=== PATIENT | female | born 1945 | race Caucasian/White ===

== ENCOUNTER 2016-09-15 11:37 | Day surgery (SDC) | payer MEDICARE, OTHER ==
[~2016-09-15] VITALS: Ht 162.6 cm; Wt 135.5 kg
[2016-09-15] MEDS ORDERED: SYNTHROID125 MCG PO (13:14)
[2016-09-15] MEDS ORDERED: TOPROL XL50 MG PO (13:14)
[2016-09-15] MEDS ORDERED: FUROSEMIDE20 MG PO (13:15)
[2016-09-15] MEDS ORDERED: ZESTORETIC 20/21 TAB PO (13:15)
[2016-09-15] MEDS ORDERED: ASPIRIN325 MG PO (13:16)
[2016-09-15 13:20] VITALS: BP 108/70; Ht 162.6 cm; Wt 135.5 kg
[2016-09-15 13:45] LABS: ANION GAP 14.9 mmol/L (8-16); CALCIUM 9.3 mg/dL (8.5-10.1); CARBON DIOXIDE 27.1 mmol/L (21.0-32.0); CREATININE - SERUM 1.1 mg/dL (0.6-1.3)
[2016-09-15 14:11] LABS: BASOPHILS 0.2 % (0.0-2.0); EOSINOPHILS 1.2 % (0-7); HEMATOCRIT 41.5 % (36.0-48.0); IMMATURE GRANULOCYTES 0.2 % (0-5); LYMPHOCYTES 26.4 % (15-50); MCHC 33.7 g/dL (31.0-37.0); MEAN PLATELET VOLUME 9.5 fL (7.4-10.4); MONOCYTES 7.1 % (2-11); NEUTROPHILS 64.9 % (40-80); PLATELET COUNT 236 10x3/uL (130-400); RBC 4.51 10x6/uL (4.00-5.40); RDW 12.4 % (11.5-14.5); WBC 5.1 10x3/uL (4.8-10.8)
--- NOTE | 2016-09-15 16:04 | NUR ---
1600--IV DC'D, PT UP TO DRESS AT THIS TIME. BEAU HARDY
--- NOTE | 2016-09-15 16:15 | NUR ---
1610--DISCHARGE INSTRUCTIONS GIVEN, PT VERBALIZES UNDERSTANDING. PT OFF UNIT VIA VANESSA. BEAU HARDY
--- NOTE | 2016-09-20 13:02 | OP ---
PATIENT NAME: ZAIDA BATISTA MEDICAL RECORD: [id number] :49 LOCATION:D.OPS ADMISSION DATE: SURGEON: ESTRELLA GA DO DATE OF OPERATION: 09/15/2016 PROCEDURE: Colonoscopy with biopsy. SCOPE: Olympus video pediatric colonoscope. MEDICATIONS: Propofol 300 mg IV per anesthesia. INDICATIONS FOR PROCEDURE: Screening colonoscopy. FINDINGS: Informed consent was given. The patient was made comfortable with the above medication. After reaching an adequate level of sedation by slow IV push, the patient was placed on her left side. A digital rectal examination was performed and was normal. The endoscope was then advanced under direct visualization through the rectum to the cecum, evidenced by the appendiceal orifice and ileocecal valve. The scope was slowly withdrawn and the mucosa was carefully examined. The withdrawal time was 8 minutes. In the sigmoid colon, there was a single benign appearing sessile polyp which measured approximately 6 mm in diameter. It was removed in its entirety in 1 piece by cold forcep polypectomy. In the sigmoid colon, there was also evidence of moderate diverticulosis with mixed, small, and large mouth diverticula. Upon retroflexion in the rectum, there was evidence of small internal hemorrhoids, which were not bleeding. Other than this, the mucosa appeared normal in its entirety. The scope was withdrawn from the patient. The patient tolerated the procedure well and there were no complications. IMPRESSION: 1. A single benign-appearing sessile polyp in the sigmoid colon, removed with cold forceps. 2. Moderate sigmoid diverticulosis. 3. Small, nonbleeding internal hemorrhoids. PLAN AND RECOMMENDATIONS: 1. Discharge home when recovery parameters are met. 2. Continue current medications. 3. High fiber diet. 4. Consider supplementing diet with fiber powder such as Metamucil, 1-2 tablespoons daily to maintain regular, soft bowel movements. 5. Recall colonoscopy dependent on pathology or results from polypectomy. I anticipate 5 years recall at this time. TRANSINT:[id number] Voice Confirmation ID: [id number] DOCUMENT ID: [id number] ESTRELLA GA DO at 1302 CC: [id number] DICTATION DATE: 09/15/16 1452 CUTTER MACHINE TENDER: 09/15/162120 [facility] 09/15/16 [facility] [address] [place] [address]
== END 2016-09-15 16:10 | disposition home or self-care (01) ==
LOC: D.OPS 11:37
PROVIDERS: Anesthesiology
DX: Z12.11 Encounter for screening for malignant neoplasm of colon (principal); I10 Essential (primary) hypertension; E03.9 Hypothyroidism, unspecified; M19.90 Unspecified osteoarthritis, unspecified site; E66.01 Morbid (severe) obesity due to excess calories; Z68.43 Body mass index [BMI] 50.0-59.9, adult; D12.5 Benign neoplasm of sigmoid colon; K57.30 Diverticulosis of large intestine without perforation or abscess without bleeding

== ENCOUNTER → 2019-04-13 09:28 | Outpatient (CLI) | payer MEDICARE, OTHER ==
[2016-09-15 13:20] VITALS: BMI 51.2
[~2019-04-13 09:28] MED LIST: ASPIRIN325 MG PO; B12 SHOT; FUROSEMIDE20 MG PO; NORVASC5 MG PO; PRAVACHOL40 MG PO; SYNTHROID125 MCG PO; TOPROL XL50 MG PO; ZESTORETIC 20/21 TAB PO
--- NOTE | 2019-04-16 09:28 | ST ---
PATIENT:ZAIDA BATISTA MEDICAL RECORD: [id number] SEX: F LOCATION:[facility] ORDER #: ADMISSION DATE: 04/13/19 AGE OF PATIENT: 74 REFERRING PHYSICIAN: INTERPRETING PHYSICIAN: RENZO SINGER MD DATE OF SERVICE: 04/13/2019 INDICATION: Angina, hypertension, and hyperlipidemia. She was exercised on standard Lexiscan protocol with 33 mCi of sestamibi injected at peak stress, 10 mCi used previously for rest images. FINDINGS: Gated SPECT reveals preserved ejection fraction at 72% with good wall motioning and thickening and brightening throughout all segments. SPECT imaging: Cardiolite was used as myocardial perfusion agent. There are reversible changes anteriorly apically, laterally, and inferiorly. This includes all sections of the myocardium. The degree of reversibility is mild to moderate. The amount of myocardium involved is very large. OVERALL IMPRESSION: Markedly abnormal nuclear stress test. Reversible ischemia throughout anterior, lateral, inferior, and apical suggestive of multivessel coronary artery disease. TRANSINT:[id number] Voice Confirmation ID: [id number] DOCUMENT ID: [id number] RENZO SINGER MD at 0928 CC: [id number] DICTATION DATE: 04/14/19 1108 CLOTH DYEING RANGE TENDER: 04/15/19 0037 DEP CLI 04/13/19 [address] [id number] [place] [address]
== END | disposition home or self-care (01) ==
LOC: D.HCCARDIO 09:28
PROVIDERS: ATTEND Internal Medicine Interventional Cardiology
DX: R07.9 Chest pain, unspecified (principal)

== ENCOUNTER 2019-05-04 07:41 | Outpatient (CLI) | payer MEDICARE, OTHER ==
[~2019-05-04] VITALS: Ht 162.6 cm; Wt 142.7 kg
--- NOTE | ~2019-05-04 | HP ---
PATIENT: ZAIDA POLLARD MEDICAL RECORD: [id number] ACCOUNT: [id number] LOCATION:[facility] : 49 ADMISSION DATE: 05/04/19 PCP: GABBIE AYERS MD HISTORY AND PHYSICAL EXAMINATION DIAGNOSES: 1. Unstable angina. 2. Abnormal nuclear stress test. 3. Hypertension. 4. Hyperlipidemia. HISTORY OF PRESENT ILLNESS: Mrs. Pollard has had increasing episodes of chest pain, chest discomfort compatible with angina, markedly abnormal nuclear stress test, now brought for cardiac catheterization. PHYSICAL EXAMINATION: CONSTITUTIONAL/GENERAL APPEARANCE: Well nourished, well developed, appears stated age. EYES: Lids and conjunctivae noninjected. No discharge. No pallor. ENT: Lips within normal limit. No cyanosis. No pallor. NECK: Carotid arteries, bilateral normal upstroke. No bruits. No thrills. No jugular venous pressure or distention. CERVICAL LYMPH NODES: Nontender. Nonenlarged. THYROID: Not enlarged. No nodules. CARDIOVASCULAR: Precordial exam, nondisplaced. No heaves or pericardial thrills. Rate and rhythm, regular. Heart sounds, normal S1, normal S2. No S3, no gallop, no rub. Systolic murmur, not heard. Diastolic murmur, not heard. RESPIRATORY: Respiratory effort, unlabored. Normal curvature. No thoracic deformity. No chest wall tenderness. Percussion, resonant. Auscultation, clear. No wheezes, no rales, no rhonchi. ABDOMEN: Soft, nondistended, nontender. No abdominal pain, no vomiting and normal appetite. MUSCULOSKELETAL: No joint tenderness, normal gait, normal tone. SKIN: Warm and dry. OVERALL IMPRESSION: Anginal symptomatology, markedly abnormal nuclear stress test. We will proceed with coronary angiography. Further care depends upon the findings of the angiography. TRANSINT:[id number] Voice Confirmation ID: [id number] DOCUMENT ID: [id number] RENZO SINGER MD CC: [id number] DICTATION DATE: 05/04/19 1032 INVESTMENT COUNSELOR: 05/04/19 1042 [facility] [address] [place] [address]
--- NOTE | ~2019-05-04 | OP ---
PATIENT NAME: ZAIDA BATISTA MEDICAL RECORD: [id number] :49 LOCATION:D.CAT ADMISSION DATE: SURGEON: RENZO SINGER MD DATE OF OPERATION: 05/04/2019 PROCEDURES: 1. Left heart catheterization. 2. Selective coronary angiography. 3. Left ventriculogram. INDICATION: Unstable angina and coronary artery disease. PROCEDURE IN DETAIL: After informed consent was obtained and after a detailed description of risks, benefits as well as alternative therapies, the patient elected to proceed with angiogram and heart catheterization. The right radial area was prepped and draped in normal sterile fashion. Right radial artery was cannulated via modified Seldinger technique with placement of 6-[place] sheath. All catheters exchanged through this sheath. FINDINGS: Left ventriculogram was performed in standard 30-degree HUNT view, reveals good cardiac wall motion, ejection fraction estimated 60%. SELECTIVE CORONARY ANGIOGRAPHY: 1. Left main is 80% stenosis. 2. The left circumflex has a hazy at least 80% stenosis at the ostium. 3. The left anterior descending has 80% stenosis in mid vessel. 4. Right coronary has 70% stenosis in mid vessel. OVERALL IMPRESSION: Severe 3-vessel coronary artery disease with left main involvement and evaluate for bypass surgery. TRANSINT:[id number] Voice Confirmation ID: [id number] DOCUMENT ID: [id number] RENZO SINGER MD CC: [id number] DICTATION DATE: 05/04/19 1034 SENIOR DATA QUALITY ANALYST: 05/04/19 1207 [facility] [address] [place] [address]
--- NOTE | ~2019-05-04 | HEMODYNAMI ---
PATIENT:ZAIDA BATISTA MEDICAL RECORD: [id number] : 49 LOCATION:[facility] ADMISSION DATE: 05/04/19 Generatedon:05/04/201910:36 Patient name: ZAIDA BATISTA Patient #: [id number] SSN: [id number] : 1945 Date of study: 05/04/2019 Page: Of Hemodynamic Procedure Report Patient Data Patient Demographics Procedure consent was obtained First Name: ZAIDA Gender: Female Last Name: LYNNE : 1945 [facility] Initial: DELON Age: 74 year(s) Patient #: [id number] Race: Unknown SSN: [id number] Additional ID: [id number] Contact details Address: [address] [place] [address] [place] State: [place] City: [place] Zip code: [address] Admission Admission Data Admission Date: 05/04/2019 Admission Time: 7:41 Arrival Date: 05/04/2019 Arrival Time: 10:00 Admit Source: Other Insurance Payor: Medicare [facility] #: [id number] Height (in.): 64.17 BSA: 2.38 (m2) Height (cm.): 163 BMI: 53.82 (kg/m2) Weight (lbs.): 315.26 Weight (kg.): 143 Lab Results Lab Result Date: 05/04/2019 Lab Result Time: 0:00 Biochemistry Name Units Result Min Max BUN mg/dl 17 --(---*)-- 7 18 Creatinine mg/dl 1.1 --(--*-)-- 0.6 1.3 eGFR ml/min 52 *-(----)-- 90 120 NONAFRICAN CBC Name Units Result Min Max Hemoglobin g/dl 13.9 --(*---)-- 13.5 17.5 Procedure Procedure Types Cath Procedure Diagnostic Procedure LHC LHC w/Coronaries Sedation Charges Moderate Sedation up to 15 minutes Procedure Description Procedure Date Procedure Date: 05/04/2019 Procedure Start Time: 10:21 Procedure End Time: 10:33 Procedure Staff Name Function William Hill MD Performing Physician Felicita Fofana RT Monitor Sangeeta Denise RT Scrub Valentin Quiroz RN Nurse Procedure Data Cath Procedure Fluoroscopy Diagnostic fluoroscopy Total fluoroscopy Time: 1.8 time: 1.8 min min Diagnostic fluoroscopy Total fluoroscopy dose: 792 dose: 792 mGy mGy Contrast Material Contrast Material Type Amount (ml) Isovue 300 46 Entry Location Entry Primary Successful Side Size Upsize Upsize Entry Closure Matos ccessful Closure Location (Fr) 1 (Fr) 2 (Fr) Remarks Device Remarks Radial Right 6 Fr Mechanical artery Short Compression Estimated blood loss: 5 ml Diagnostic catheters Device Type Used For End Catheter Placement DIAGNOSTIC [place] 110cm 5 Multi-vessel Fr catheter ([id number]) Angiography Procedure Complications No complications Procedure Medications Medication Administration Route Dosage Oxygen etCO2 Nasal cannula 2 l/min Lidocaine 2% added to field 20 Heparin Flush Bag added to field 2 bags (1000units/500ml NS) 0.9% NaCl I.V. 100 ml/hr Radial Cocktail I.A. 1 syringe (Verapamil 2mg/Nitro 400mcg/Heparin 1500units) Versed I.V. 1 mg Fentanyl I.V. 50 mcg Versed I.V. 1 mg Fentanyl I.V. 50 mcg Fentanyl I.V. 50 mcg Hemodynamics Rest BSA: 2.38 (m2) HGB: 13.9 (g/dl) O2 Consumption: Estimated: 235.06 (ml/min) O2 Co nsumption indexed: Estimated:98.76 (ml/min/m) Heart Rate: 89 (bpm) Pressure Samples Time Site Value (mmHg) Purpose Heart Use Rate(bpm) 10:25 LV 87/5,5 Snapshot 85 Snapshots Pre Cath Intra NCS Post Cath Vital Signs Time Heart Resp SPO2 etCO2 NIBP (mmHg) Rhythm Pain Sedation Rate (ipm) (%) (mmHg) Status Level (bpm) 10:06:36 90 15 99 11.3 135/87(112) NSR 0 (11) 10(A) , No pain 10:11:03 80 12 97 28.6 130/75(105) NSR 0 (11) 10(A) , No pain 10:15:26 84 19 96 36.1 127/76(94) NSR 0 (11) 10(A) , No pain 10:19:47 83 19 93 30.8 128/77(95) NSR 0 (11) 9(A) , No pain 10:24:11 84 17 95 0 121/72(92) NSR 0 (11) 9(A) , No pain 10:28:31 82 14 94 34.6 94/64(85) NSR 0 (11) 10(A) , No pain 10:32:43 80 10 93 0 111/65(92) NSR 0 (11) 10(A) , No pain Medications Time Medication Route Dose Verified Delivered Reason Notes Effectiveness by by 10:11:53 Oxygen etCO2 2 l/min William Hanson used for Nasal Liz Quiroz RN procedure cannula 10:12:01 Lidocaine 2% added 20ml William Thomas for local to vial Liz Hill MD anesthetic field 10:12:08 Heparin Flush added 2 bags William Thomas used for Bag to Liz Hill MD procedure (1000units/500ml field NS) 10:12:17 0.9% NaCl I.V. 100 William Bufffrancisco javier Per ml/hr Liz Quiroz RN physician 10:17:46 Versed I.V. 1 mg William Hanson for sedation Liz Quiroz RN 10:17:52 Fentanyl I.V. 50 mcg William Hanson for sedation Liz Quiroz RN 10:21:12 Versed I.V. 1 mg William Colemanie for sedation Liz Quiroz RN 10:21:16 Fentanyl I.V. 50 mcg William Hanson for sedation Liz Quiroz RN 10:23:54 Radial Cocktail I.A. 1 William Thomas for (Verapamil syringe Liz Hill MD vasodilation 2mg/Nitro 400mcg/Heparin 1500units) 10:25:04 Fentanyl I.V. 50 mcg William Hanson for sedation Liz Quiroz RN Procedure Log Time Note 9:07:26 Informed consent obtained and on chart 9:25:04 Arrival Date: 05/04/2019 10:00:00 AM 9:25:39 Insurance Payor : Medicare 9:25:50 Patient Height : 64.17 inches 9:25:56 Patient Weight : 315.26 lbs 9:26:37 Lab Result : Hemoglobin 13.9 g/dl 9:26:37 Lab Result : eGFR NONAFRICAN 52 ml/min 9::37 Lab Result : BUN 17 mg/dl 9::37 Lab Result : Creatinine 1.1 mg/dl 9:33:07 Diagnostic Cath Status : Elective 9:33:24 Sangeeta Denise RT(R) sent for patient. Start room use. 9:33:25 Time tracking: Regular hours (M-F 7:00 - 5:00) 9:33:29 Plan of Care:Hemodynamics will remain stable., Cardiac rhythm will remain stable., Comfort level will be maintained., Respiratory function will remain adequate., Patient/ family verbilizes understanding of procedure., Procedure tolerated without complication., Recovers from procedure without complications.. 9:50:29 Admit Source: Other 10:05:16 Patient received from Pre/Post Procedure Room to CCL 2 Alert and oriented. Tansferred to table in Supine position. 10:05:18 Warm blankets applied, and ashok hugger turned on for patient comfort. 10:05:18 Correct patient and procedure confirmed by team. 10:05:18 ECG and BP/O2 sat monitors applied to patient. 10:05:19 Vital chart was started 10:06:39 Baseline sample Acquired. 10:06:47 Rhythm: sinus tachycardia 10:06:49 Full Disclosure recording started 10:07:05 H&P Date Dictated: 05/04/2019 H&P Addendum completed by physician on day of procedure. (MUST COMPLETE FOR ALL OUTPATIENTS), New H&P dictated by physician.. 10:07:06 Pre-procedure instructions explained to patient. 10:07:07 Pre-op teaching completed and patient verbalized understanding. 10:07:08 Family in waiting room. 10:07:09 Patient NPO since Midnight. 10:07:12 Is the patient allergic to Iodine/contrast media? No. 10:07:13 Was the patient premedicated? Yes 10:07:23 Is patient on blood thinner?No 10:07:25 Patient diabetic? No. 10:07:27 Previous problem with sedation/anesthesia? No ? 10:07:28 Snore? Yes 10:07:29 Sleep apnea? Yes 10:07:32 Deviated septum? No 10:07:33 Opens mouth fully? Yes 10:07:35 Sticks out tongue? Yes 10:07:53 Airway obstruction? No ? 10:07:56 Dentures? No ? 10:08:01 Pre procedure: right dorsailis pedis pulse 2+ Normal; easily identifiable; not easily obliterated 10:08:02 Pre procedure: left dorsailis pedis pulse 2+ Normal; easily identifiable; not easily obliterated 10:08:04 Patient pain scale 0/10 ?. 10:08:09 IV patent on arrival in left forearm with 0.9% NaCl at [facility]. 10:08:14 Risk of Mortality: 0.2 10:08:18 Risk of blood transfusion: 1.6 10:08:22 Risk of SVITLANA: 2.6 10:08:26 Right Radial & Right Groin area was prepped with chlora-prep and draped in sterile fashion 10:08: Alarms reviewed by R. N. 10:08:27 Sharps counted by scrub and verified by R.N. 10:11:14 Physician arrived 10:11:15 --------ALL STOP TIME OUT------ 10::15 Final Timeout: patient, procedure, and site verified with staff and physician. All members of the team are in agreement. 10:11:18 Right Radial & Right Groin site verified by team. 10:11:22 Fire Safety Assessment: A--An alcohol-based skin anteseptic being used preoperatively., C--Open oxygen or nitrous oxide is being used., D--An ESU, laser, or fiber-optic light is being used. 10:11:24 Physical assessment completed. ASA score P 2 - A patient with mild systemic disease as per William Hill MD. 10:11:53 Oxygen 2 l/min etCO2 Nasal cannula was administered by Valentin Quiroz RN; used for procedure; Verbal order read back and verified. 10:12:01 Lidocaine 2% 20ml vial added to field was administered by William Hill MD; for local anesthetic; Verbal order read back and verified. 10:12:05 3a) 45-59 Moderately reduced kidney function. 10:12:08 Heparin Flush Bag (1000units/500ml NS) 2 bags added to field was administered by William Hill MD; used for procedure; Verbal order read back and verified. 10:12:17 0.9% NaCl 100 ml/hr I.V. was administered by Buffie Quiroz RN; Per physician; Verbal order read back and verified. 10:13:08 Maximum allowable contrast dose (3.7 X eGFR X 0.75)144 ml. 10:13:12 Sedation plan: IV Moderate Sedation Medication:Versed, Fentanyl 10:13:16 Use device set Radial Dx or PCI 10:13:17 ACIST Syringe (01849) opened to sterile field. 10:13:17 Medline Cath Pack ([id number]) opened to sterile field. 10:13:18 Bag Decanter (2002S) opened to sterile field. 10:13:18 ACIST Hand Control (60072) opened to sterile field. 10:13:19 ACIST Manifold (31247) opened to sterile field. 10:13:19 Tegaderm 4 x 4 (1626W) opened to sterile field. 10:13:20 MBrace Wrist Support ([id number]) opened to sterile field. 10:13:23 SHEATH 6FR RAIN (4126035) opened to sterile field. 10:13:23 EMERALD Guide Wire (508-882) opened to sterile field. 10:17:46 Versed 1 mg I.V. was administered by Valentin Quiroz RN; for sedation; Verbal order read back and verified. 10:17:52 Fentanyl 50 mcg I.V. was administered by Valentin Quiroz RN; for sedation; Verbal order read back and verified. 10:21:12 Versed 1 mg I.V. was administered by Valentin Quiroz RN; for sedation; Verbal order read back and verified. 10:21:16 Fentanyl 50 mcg I.V. was administered by Valentin Quiroz RN; for sedation; Verbal order read back and verified. 10:21:49 Procedure started. 10:21:58 Local anesthetic to right radial artery with Lidocaine 2% by William Hill MD.INITIAL ACCESS ONLY 10:22:49 A 6 Fr Short sheath was inserted into the Right Radial artery 10:22:58 A DIAGNOSTIC [place] 110cm 5 Fr catheter (598752) was advanced over the wire and used for Multi-vessel Angiography. 10:23:02 Zero performed for pressure channel P1 10:23:54 Radial Cocktail (Verapamil 2mg/Nitro 400mcg/Heparin 1500units) 1 syringe I.A. was administered by William Hill MD; for vasodilation; Verbal order read back and verified. 10:25:04 Fentanyl 50 mcg I.V. was administered by Valentin Quiroz RN; for sedation; Verbal order read back and verified. 10:25:12 LV hemodynamics recorded. 10:25:13 LV gram done using HUNT 10:25:15 Injector settings: Ml/sec: 5, Volume: 15, 10:25:21 EF : 60 % 10:25:45 LCA angiography performed. 10:25:48 Injector settings: Ml/sec: 3, Volume: 6, 10:27:06 RCA angiography performed. 10:27:20 Injector settings: Ml/sec: 3, Volume: 6, 10:28:20 Catheter removed. 10:28:22 ZEPHYR REGULAR TR BAND (789246) opened to sterile field. 10:28:32 Sheath removed intact; hemostasis achieved with Mechanical Compression to the Right Radial artery. 10:29:02 Procedure ended.(Physican Out) 10:30:18 Fluoroscopy time 01.80 minutes. 10:30:22 Flurop Dose total: 792 10:30:22 Fluoroscopy dose: 792 mGy 10:30:27 Dose Area Product 73322 mGy/cm. 10:30:30 Contrast amount:Isovue 300 46ml. 10:31:04 Maximum allowable dose exceeded? No. 10:31:05 Sharps counted by scrub and verified by R.N. 10:31:09 [place] band inflated with 10cc of air. 10:31:59 Insertion/operative site no bleeding no hematoma. 10:32:32 Post right radial artery:stable 10:32:42 Post Procedure Pulses reassessed and unchanged 10:32:44 Post procedure rhythm: unchanged. 10:32:55 Estimated blood loss: 5 ml 10:32:57 Post procedure instruction explained to patient.Patient verbalizes understanding. 10:32:57 Patient needs reinforcement of post procedure teaching. 10:33:14 Procedure type changed to Cath procedure, Diagnostic procedure, LHC, [facility] w/Coronaries, Sedation Charges, Moderate Sedation up to 15 minutes 10:33:15 Procedure and supply charges have been captured, reviewed, submitted and are correct. 10:33:23 Procedure Complication : No complications 10:33:25 Vital chart was stopped 10:33:31 [facility] Findings: MVD- CABG consult 10:33:32 Operative report dictated upon procedure completion. 10:33:33 See physician's report for complete and final results. 10:33:35 Report given to Pre/Post Procedure Room. 10:33:38 Patient transfered to Pre/Post Procedure Room with Stretcher. 10:33:40 Procedure ended. 10:33:40 Full Disclosure recording stopped 10:33:49 End room use (Document Last) 10:35:39 End room use (Document Last) 10:36:06 End room use (Document Last) Device Usage Item Name Manufacture Quantity Catalog Hospital Part Current Minima l Lot# / Number Charge Number Stock Stock Serial# Code ACIST Acist 1 54240 [id number] [id number] 20 Syringe Medical (53609) Systems Inc Medline Medline 1 [id number] [id number] 38754 620123 5 Cath Pack ([id number]) Bag Microtek 1 2001S 617643 29295 917010 5 Decanter Medical Inc. () ACIST Hand Acist 1 53138 604335 753352 462814 5 Control Medical (68689) Systems Inc ACIST Acist 1 84074 963433 943464 625664 5 Manifold Medical (83590) Systems Inc Tegaderm 4 3M 1 1626W 819177 122032 995755 5 x 4 (1626W) MBrace Advanced 1 140-0250-00 775458 91635 372087 5 Wrist Vascular Support Dynamics ([id number]) SHEATH 6FR Cardinal 1 [id number] 050281 8744029 388046 5 RAIN Health (3375098) EMERALD Cardinal 1 502-455 884616 906620 082602 5 Guide Wire Health (502-548) DIAGNOSTIC Terumo 1 40-5013 263988 670554 701197 5 [place] 110cm 5 Fr catheter (822049) ZEPHYR Cardinal 1 473242 199094 9902362 531227 5 REGULAR TR Health BAND (927280) Signature Audit [place] Stage Time Signature Unsigned Intra-Procedure 05/04/2019 Felicita Fofana 10:35:40 AM RT(R) Intra-Procedure 05/04/2019 Valentin Quiroz RN 10:36:06 AM Intra-Procedure 05/04/2019 William Hill 10:36:37 AM Signatures Performing Physician : Signature : William Hill MD Date : Time : Monitor : Felicita Brigido RT Signature : Date : Time : Nurse : Buffie Quiroz RN Signature : Date : Time : [address] [place] [address]
[~2019-05-04 07:41] MED LIST changes: -B12 SHOT; -NORVASC5 MG PO; -PRAVACHOL40 MG PO
[2019-05-04] MEDS ORDERED: PRAVACHOL40 MG PO (08:05)
[2019-05-04] MEDS ORDERED: NORVASC5 MG PO (08:06)
[2019-05-04 08:13] VITALS: BP 134/77; BMI 54.0
[2019-05-04 08:40] LABS: ANION GAP 12.9 mmol/L (8-16); CALCIUM 9.6 mg/dL (8.5-10.1); CARBON DIOXIDE 23.2 mmol/L (21.0-32.0); CREATININE - SERUM 1.1 mg/dL (0.6-1.3); POTASSIUM - SERUM 4.1 mmol/L (3.5-5.1)
[2019-05-04 08:44] LABS: BASOPHILS 0.2 % (0-2); EOSINOPHILS 0 % (0-7); HEMATOCRIT 40.4 % (36.0-48.0); HEMOGLOBIN 13.9 g/dL (12-16); IMMATURE GRANULOCYTES 0.4 % (0-5); LYMPHOCYTES 14.8 % (15-50); MCH 30.6 pg (26.0-34.0); MCHC 34.4 g/dL (31.0-37.0); MEAN PLATELET VOLUME 9.1 fL (7.4-10.4); MONOCYTES 2.7 % (2-11); NEUTROPHILS 81.9 % (40-80); PLATELET COUNT 243 10x3/uL (130-400); RBC 4.54 10x6/uL (4.00-5.40); RDW 12.3 % (11.5-14.5); WBC 5.6 10x3/uL (4.8-10.8)
--- NOTE | 2019-05-04 10:45 | NUR ---
PT ARRIVED BY STRETCHER. PLACED ON MONITORS. ASSESSMENT COMPLETED. PT'S FAMILY AT BEDSIDE. CALL LIGHT WITHIN REACH.
--- NOTE | 2019-05-04 11:00 | NUR ---
RIGHT WRIST Z BAND IN PLACE. NO BLEEDING/HEMATOMA NOTED. CALL LIGHT WITHIN REACH. FAMILY AT BEDSIDE. VSS.
--- NOTE | 2019-05-04 11:15 | NUR ---
RIGHT RADIAL Z BAND IN PLACE. NO BLEEDING/HEMATOMA NOTED. FAMILY AT BEDSIDE. VSS. CALL LIGHT WITHIN REACH.
--- NOTE | 2019-05-04 11:35 | NUR ---
DR. SINGER ROUNDED AND SPOKE WITH PT AND PT'S FAMILY. RIGHT WRIST Z BAND IN PLACE. NO BLEEDING/HEMATOMA NOTED. 2cc OF AIR REMOVED FROM BAND. NO BLEEDING NOTED. PT SET UP WITH SANDWICH TRAY AND DRINK. DENIES NAUSEA/PAIN AT THIS TIME.
--- NOTE | 2019-05-04 11:45 | NUR ---
3cc OF AIR REMOVED FROM Z BAND. NO BLEEDING/HEMATOMA NOTED. CALL LIGHT WITHIN REACH. FAMILY AT BEDSIDE. NO NEEDS AT THIS TIME.
--- NOTE | 2019-05-04 12:00 | NUR ---
3cc OF AIR REMOVED FROM Z BAND. NO BLEEDING/HEMATOMA NOTED. CALL LIGHT WITHIN REACH. FAMILY AT BEDSIDE. VSS.
--- NOTE | 2019-05-04 12:30 | NUR ---
RIGHT RADIAL Z BAND REMOVED. DRESSING APPLIED. NO BLEEDING/HEMATOMA NOTED. CALL LIGHT WITHIN REACH. RIGHT WRIST BRACE IN PLACE. VSS. WILL CONTINUE TO MONITOR.
--- NOTE | 2019-05-04 12:45 | NUR ---
FREIGHT AGENT AT BEDSIDE FOR CAROTID DOPPLERS.
--- NOTE | 2019-05-04 13:00 | NUR ---
PT AMBULATED TO RESTROOM. VOIDED WITHOUT DIFFICULTY. BACK TO ROOM. STEADY GAIT NOTED. CALL LIGHT WITHIN REACH. WAITING ON DR. ESPANA TO ROUND AND SPEAK WITH PT.
--- NOTE | 2019-05-04 13:20 | NUR ---
DR. ESPANA AT BEDSIDE SPEAKING WITH PT AND PT'S FAMILY.
[2019-05-04 13:36] VITALS: Ht 162.6 cm; Wt 142.7 kg
--- NOTE | 2019-05-04 13:45 | NUR ---
ULTRASOUND AT BEDSIDE FOR BILATERAL VEIN MAPPING.
--- NOTE | 2019-05-04 14:06 | NUR ---
RIGHT WRIST DRESSING C/D/I. NO S/S OF HEMATOMA NOTED. CALL LIGHT WITHIN REACH. PT STILL GETTING VEIN MAPPING BY ULTRASOUND. NO NEEDS AT THIS TIME.
--- NOTE | 2019-05-04 14:57 | NUR ---
RESP THERAPY AT BEDSIDE TO DO NIV AND VC
--- NOTE | 2019-05-04 15:11 | NUR ---
LAB AT BEDSIDE TO DRAW LAB AND OBTAIN URINE SPECIMEN.
--- NOTE | 2019-05-04 15:12 | NUR ---
PIV D/C'D WITH CATH TIP INTACT. PT TOLERATED WELL.
--- NOTE | 2019-05-04 15:20 | NUR ---
PT UP AND DRESSED WITH ASSIST.
--- NOTE | 2019-05-04 15:40 | NUR ---
DISCUSSED DISCHARGE INSTRUCTIONS WITH PT AND PT'S FAMILY. THEY VOICED UNDERSTANDING. SEAN WITH DR. ESPANA HAS ALREADY GONE OVER INFORMATION FOR TUESDAY CABG SURGERY. THEY VOICED UNDERSTANDING. RIGHT WRIST DRESSING C/D/I. NO S/S OF HEMATOMA NOTED.
--- NOTE | 2019-05-04 16:00 | NUR ---
PT TAKEN TO RADIOLOGY BY WHEELCHAIR.
--- NOTE | 2019-05-04 16:24 | NUR ---
PT TAKEN OUT TO VEHICLE BY WHEELCHAIR. NO S/S OF DISTRESS NOTED. ALL BELONGINGS AND PAPERWORK IN HAND. RIGHT WRIST DRESSING C/D/I. NO S/S OF HEMATOMA NOTED.
== END 2019-05-04 16:25 | disposition home or self-care (01) ==
LOC: D.CATH 07:41
PROVIDERS: ATTEND Internal Medicine Interventional Cardiology
DX: I25.110 Atherosclerotic heart disease of native coronary artery with unstable angina pectoris (principal); I10 Essential (primary) hypertension; R07.9 Chest pain, unspecified; R94.30 Abnormal result of cardiovascular function study, unspecified

== ENCOUNTER 2019-05-07 05:06 | Inpatient (IN) | payer MEDICARE, OTHER ==
[2019-05-04 15:30] LABS: APPEARANCE SL CLDY (CLEAR); COLOR YELLOW (YELLOW)
[2019-05-04 15:31] LABS: BILIRUBIN NEGATIVE (NEGATIVE); GLUCOSE 500 mg/dL (NEGATIVE); KETONE NEGATIVE (NEGATIVE); NITRITE NEGATIVE (NEGATIVE); PROTEIN NEGATIVE (NEGATIVE); UROBILINOGEN NORMAL (NORMAL)
[2019-05-04 15:32] LABS: BACTERIA FEW /hpf (NEGATIVE); EPITHELIAL CELLS 0-5 /hpf (0-5); RED CELLS - URINE 0-5 /hpf (0-5); WHITE CELLS - URINE RARE /hpf (NEGATIVE)
[2019-05-04 15:40] LABS: APTT 22.8 SECONDS (22.8-39.4); INR 1.04 (0.85-1.17); PROTIME 13.1 SECONDS (11.6-15.0)
[2019-05-04 16:01] LABS: ALBUMIN 3.5 g/dL (3.4-5.0); ANION GAP 12.6 mmol/L (8-16); BILIRUBIN - TOTAL 0.38 mg/dL (0.2-1.3); CALCIUM 10.3 mg/dL (8.5-10.1); CARBON DIOXIDE 27.4 mmol/L (21.0-32.0); CREATININE - SERUM 1.1 mg/dL (0.6-1.3); PHOSPHOROUS 2.3 mg/dL (2.5-4.9); PROTEIN - SERUM 8.4 g/dL (6.4-8.2); T4 THYROXIN - FREE 1.3 ng/dL (0.76-1.46); THYROID STIMULATING HORMONE 0.81 uIU/mL (0.36-3.74); URIC ACID 6.7 mg/dL (2.6-7.2)
[~2019-05-07] VITALS: Ht 162.6 cm; Wt 149.3 kg
[2019-05-07] VITALS (38 sets, daily range): BP systolic 86–139; BP diastolic 42–72; BMI 53.1; BMI 56.7
[~2019-05-07 05:06] MED LIST changes: +NORVASC5 MG PO; +PRAVACHOL40 MG PO
[2019-05-07] MEDS ORDERED: B12 SHOT (06:04)
--- NOTE | 2019-05-07 10:48 | NUR ---
OPEN SORE NOTED ON BACK OF LEFT UPPER LEG.
[2019-05-07 12:53] LABS: INR 1.46 (0.85-1.17); PROTIME 17.1 SECONDS (11.6-15.0)
--- NOTE | 2019-05-07 14:11 | NUR ---
PT ARRIEVED IN THE UNIT. PT SEDATED AND ON THE VENT. PT HOOKED TO ICU MONITORS. NSR ON THE MONITOR. PT ON LIEN, DOPAMINE, AMIODORONE, PLASMALYTE AT 50ML/H. PER OR STAFF, K IS IN THE PLASMALYTE. PT O2 SAT 88% ON 100% FIO2. HYPOTENSIVE. ANESTESIA GIVING EPI. PT IN [place] DR ESPANA AT THE PTS BEDSIDE. START LEVOPHED GTT. XRAY SHOT AND DR ESPANA REVIEWED. PRESSURE INCREASING AND O2 ABOUT 90%. SEE IV MEDS FOR GTT AND RATES. 8.0 ETT 22, RIGHT IJ CVL NOTED. MIDSTERNAL DRESSING C/D/I. SUBSTERNAL DRESSING C/D/I WITH CT X2 LABLED A AND P AND A LEFT SUBSTERNAL TRAVIS DRAIN. ALL DRAINS HAVE BLOODY DRAINAGE. TRAVIS COMPRESSED. TPM WIRES X2 CONNECTED TO PACEMAKER BUT TURNED OFF. LEFT TEO NOTED WITH THE WRIST PROTECTOR ON, IV TO R WRIST. R WRIST HARVEST NOTED. DRESSING C/D/I. FC NOTED WITH CLEAR, YELLOW URINE. RLE HARVEST SITE NOTED. DRESSING C/D/I WITH KOBAN FROM ANKLE TO THIGH. WILL CONT POC.
[2019-05-07 15:02] LABS: INR 1.24 (0.85-1.17)
--- NOTE | 2019-05-07 15:45 | MORECARE ---
CASE MANAGEMENT DISCHARGE SUMMARY PATIENT: ZAIDA BATISTA DELON UNIT: [id number] ADM DATE: 05/07/19 AGE: 74 : [birth year] SEX: F ROOM/BED: [facility] AUTHOR: JUANY JAIN PHYSICIAN: REFERRING PHYSICIAN: TALISHA ESPANA MD DATE OF SERVICE: 05/07/19 Discharge Plan Patient Name: ZAIDA BATISTA [facility] [facility] 1945 Planned Disposition: Anticipated Discharge Date: Discharge Date: Expected LOS: Initial Reviewer: [email or web address] Initial Review Date: 05/07/2019 Generated: 05/07/19 4:45 pm Patient Name: ZAIDA BATISTA Page 79340 at 1545 All edits/amendments must be made on the electronic document DICTATION DATE: 05/07/19 1545 FOLEY ARTIST: JENNIFER 05/07/19 1545 RPT#: [id number] DC DATE: STATUS: ADM IN [facility] [address] [place] [address] END OF REPORT
--- NOTE | 2019-05-07 15:53 | MORECARE ---
CASE MANAGEMENT DISCHARGE SUMMARY PATIENT: ZAIDA BATISTA UNIT: [id number] ADM DATE: 05/07/19 AGE: 74 : 47 SEX: F [facility]BED: [facility] AUTHOR: CRISTOBAL,DOC PHYSICIAN: REFERRING PHYSICIAN: TALISHA ESPANA MD DATE OF SERVICE: 05/07/19 Discharge Plan Patient Name: ZAIDA BATISTA Facility: [facility]:[place] : 1945 Planned Disposition: Anticipated Discharge Date: Discharge Date: Expected LOS: Initial Reviewer: [email or web address] Initial Review Date: 05/07/2019 Generated: 05/07/19 4:53 pm Comments DCP- Discharge Planning Updated by [email or web address]: Rae Kline on 05/07/19 2:[address] Patient Name: ZAIDA BATISTA Admission Status: Elective Accout number: [id number] Admission Date: 05-07-2019 : 1945 Admission Diagnosis: Attending: TALISHA ESPANA Current LOS: 1 Anticipated DC Date: Planned Disposition: Primary Insurance: MEDICARE A & B Discharge Planning Comments: CM met with patient's daughter's to complete initial dc planning assessment. CM educated patient on the CM role and verbal consent given by patient to complete assessment. Patient lives at home alone where she is independent with her care. At discharge patient plans to return home and feels this is a safe discharge. CM discussed availability of home health, rehab services, and medical equipment. Her daughter will be her laborer driver home. Patient may need walk test if 02 required at discharge. Patient denied known discharge needs at this time. CM will continue to follow and will assist as needed with dc plans/needs. Hair Clipper Power: Rae Kline DCPIA - Discharge Planning Initial Assessment Updated by [email or web address]: Rae Kline on 05/07/19 3:46 pm * How many steps to enter\exit or inside your home? * PCP GABBIE AYERS * Pharmacy [facility] * Preadmission Environment Home Alone * ADLs Independent * Equipment None * List name and contact numbers for known caregivers / representatives who currently or will assist patient after discharge: BALTA CARMEN - DAUGHTER - [phone] ELAN GUIDRY - DAUGHTER - [phone] * Verbal permission to speak to the caregivers and representatives has been obtained from the patient. Yes * Community resources currently utilized None * Additional services required to return to the preadmission environment? No * Can the patient safely return to the preadmission environment? Yes * Has this patient been hospitalized within the prior 30 days at any hospital? No Last DP export: 05/07/19 2:45 p Patient Name: ZAIDA BATISTA Page 93686 at 1553 All edits/amendments must be made on the electronic document DICTATION DATE: 05/07/191552 ELECTRIC DISTRIBUTION ENGINEER: JENNIFER 05/07/191552 RPT#: [id number] DC DATE: STATUS: ADM IN [facility] [address] [place] [address] END OF REPORT
--- NOTE | 2019-05-07 16:11 | NUR ---
DR ESPANA CALLED AND ABG READ TO HIM. GIVE 500CC BOLUS OVER 1 HOUR.
--- NOTE | 2019-05-07 17:45 | NUR ---
O2 INCREASED TO 100% DUE TO 89-90%
--- NOTE | 2019-05-07 18:53 | NUR ---
DR ESPANA CALLED AND UPDATED ON PT. 250 BOLUS/1H. WEEN LIEN TOLERATED. DECREASE DOPAMINE TO 3MCG/KG/MIN AND LEAVE IT. KEEP PT SEDATED. GET GAS IN [address] ESPANA FOR FURTHER ORDERS.
--- NOTE | 2019-05-07 19:00 | NUR ---
REPORT RECIEVED. CARE ASSUMED. SEE FLOWSHEET FOR GTTS. VENT PER ETT. SEDATED. OPENS EYES TO SPEECH, FOLLOWS COMMANDS.
--- NOTE | 2019-05-07 20:00 | NUR ---
DAUGHTERS AT BEDSIDE. UPDATE ON PT GIVEN AND QUESTIONS ANSWERED.
--- NOTE | 2019-05-07 21:25 | NUR ---
ABG RESULT SENT TO DR ESPANA. NEW ORDERS RECIEVED. DECREASED DOPAMINE. STARTING LEVOPHED AT LOW DOSE AND WILL START WEANING LIEN DOWN. SEDATION OFF. SEE IV FLOWSHEET.
[2019-05-08] VITALS (81 sets, daily range): BP systolic 94–130; BP diastolic 46–68; Ht 162.6 cm; Wt 149.3 kg
--- NOTE | 2019-05-08 01:38 | NUR ---
BLOOD GLUCOSE IS BACK UP TO 160. INSULIN GTT RESTARTED AT HALF OF LAST DOSE(4ML/HR). CONTINUIONG TO TITRATE LIEN DOWN.
--- NOTE | 2019-05-08 04:00 | NUR ---
SPOKE WITH DR SWAN ON PHONE AND UPDATE GIVEN ON PT.
--- NOTE | 2019-05-08 05:20 | NUR ---
PT BATHED AND LINENS CHANGED. TOLERATED WELL.
--- NOTE | 2019-05-08 06:15 | NUR ---
LEVOPHED AND LIEN ARE WEANED OFF. PT IS TOLERATING WELL.
[2019-05-08 06:31] LABS: HEMOGLOBIN 11.6 g/dL (12-16); MCH 30.1 pg (26.0-34.0); MCHC 33.1 g/dL (31.0-37.0); MCV 90.9 fL (80.0-100.0); MEAN PLATELET VOLUME 9.1 fL (7.4-10.4); RBC 3.85 10x6/uL (4.00-5.40); RDW 12.7 % (11.5-14.5); WBC 11.8 10x3/uL (4.8-10.8)
[2019-05-08 06:54] LABS: ALBUMIN 2.6 g/dL (3.4-5.0); ANION GAP 10.7 mmol/L (8-16); BILIRUBIN - TOTAL 0.25 mg/dL (0.2-1.3); CALCIUM 8.1 mg/dL (8.5-10.1); CARBON DIOXIDE 26.3 mmol/L (21.0-32.0); CREATININE - SERUM 1.3 mg/dL (0.6-1.3); MAGNESIUM - SERUM 2.6 mg/dL (1.8-2.4); PHOSPHOROUS 3.8 mg/dL (2.5-4.9); PROTEIN - SERUM 5.8 g/dL (6.4-8.2)
--- NOTE | 2019-05-08 07:41 | NUR ---
BLOOD GLUCOSE 120 AFTER 15MIN. INSULIN OFF AT THIS TIME PER PROTOCOL.
--- NOTE | 2019-05-08 08:29 | NUR ---
SBP 99/50. DR. ESPANA NOTIFIED. WANTS PT ON LOW DOSE OF LIEN TO MAINTAIN SBP BETWEEN 100-120. LIEN HAS BEEN RESTARTED AT 0.1MCG/KG/MIN.
--- NOTE | 2019-05-08 10:18 | NUR ---
BLOOD GLUCOSE 141. INSULIN DRIP OFF PER PROTOCOL.
--- NOTE | 2019-05-08 10:49 | OP ---
PATIENT NAME: ZAIDA BATISTA MEDICAL RECORD: [id number] :47 LOCATION:D.CVI D.CV06 ADMISSION DATE:05/07/19 SURGEON: TK ESPANA MD DATE OF OPERATION: 05/07/2019 SURGEON: Tk Espana MD FRONT DESK COORDINATOR: None. PROCEDURES PERFORMED: 1. Coronary artery bypass graft times 4 (left internal mammary artery to LAD, left radial artery from aorta to obtuse marginal, reverse saphenous vein graft from aorta to first diagonal and aorta to posterior descending artery). 2. Left radial artery harvest. 3. Endoscopic saphenous vein harvest. PREOPERATIVE DIAGNOSIS: Coronary artery disease including severe left main stenosis. POSTOPERATIVE DIAGNOSIS: Coronary artery disease including severe left main stenosis. ANESTHESIA: General endotracheal anesthesia. ESTIMATED BLOOD LOSS: Total cardiopulmonary bypass with Cell Saver retransfusion 1 pack red blood cell, two FFP. COMPLICATIONS: None. CONDITION: Stable. SPECIMENS: None. DISPOSITION: CV-ICU. OPERATIVE FINDINGS: 1. Transesophageal echocardiography revealed good contractility and no valvular incompetence or stenosis before and after cardiopulmonary bypass. 2. Good quality left radial artery. 3. Good quality greater saphenous vein and a large fatty leg. 4. Good quality left internal mammary artery. 5. Large heart. 6. LAD 2.0 mm with severe disease. 7. First diagonal 1.5 mm with severe disease. 8. Obtuse marginal, first branch 1.5 mm. 9. Posterior descending artery 2.0 mm. OPERATIVE INDICATION: Coronary artery disease with left main coronary stenosis. OPERATIVE PROCEDURE IN DETAIL: The patient was brought to the operative suite. General anesthesia was obtained. The patient was prepped and draped, left radial artery harvest was performed by dividing the side branches with clips, ligating vessel proximally and distally oversewing with Prolene. Perfusing the vessel with blood papaverine solution. The arm was closed with subcutaneous suture and clips. OPERATIVE REPORT [id number] ZAIDA BATISTA Endoscopic vein harvest, right lower extremity was performed. Side branch valve electrocautery. Vessels were ligated proximally and distally, removed. Side branches were tied or clipped and then sites were oversewn. The leg was closed in 2 layers. Median sternotomy incision was made. Subcutaneous tissue divided. Left carotid system was divided with a saw. Left hemisternum was elevated. The left lower cavity was entered. Left internal mammary vein was taken as a pedicle graft. Sternal retractor was placed. Pericardium was opened. Heparin was given. Dual stage venous cannula was inserted. The Internal mammary clipped and made ready for anastomosis. Activated clotting times were appropriately elevated. The patient placed on cardiopulmonary bypass. Sites for distal anastomoses were selected. An antegrade cardioplegia needle inserted. Crossclamp was placed. Cardioplegia given antegrade and this was repeated at 15 to 20 minute intervals including down the completed vein grafts. Distal anastomosis was performed in standard technique. Proximal anastomosis with single cross-clamp technique. Aortic root de-aired and vein grafts de-aired. Proximal and distal anastomotic sites inspected for bleeding. Single 6-0 was the proximal vein graft to the right, vein graft lay appropriately. The patient resumed a spontaneous rhythm. Atrial and ventricular pacing wires were placed. Left chest was evacuated and irrigated. The patient fully rewarmed, weaned from cardiopulmonary bypass and was stable. The patient was decannulated. Bleeding at the atrial cannulation sites were repaired with a pledgeted Prolene suture. The aortic cannula site oversewn with a pledgeted Prolene suture. Protamine was given. Thorough irrigation was undertaken. Hemostasis was ensured. Drain was placed in mediastinal pleural cavity. Pericardial fat was loosely reapproximated in the midline internal mammary harvest site without bleeding. Sternum was closed with wires. Fascia was closed. Subcutaneous tissue was closed. Skin was closed. Dermabond was placed. The needle and sponge counts were correct and the patient was taken to ICU in stable condition. TRANSINT:[id number] Voice Confirmation ID: [id number] DOCUMENT ID: [id number] TK ESPANA MD at 1049 CC: GABBIE AYERS and RENZO SINGER [id number] DICTATION DATE: 05/07/19 1429 H[employer]AN [employer]OURCE INTER[employer]: 05/07/19 1803 ADM IN [place] [id number] [place] [address]
--- NOTE | 2019-05-08 11:15 | NUR ---
DR. ESPANA AT BEDSIDE. WANTS BLOOD GLUCOSE TO BE TREATED PER PROTOCOL.
--- NOTE | 2019-05-08 11:49 | NUR ---
ON CPAP TRIAL AT THIS TIME. DAUGHTER AT BEDSIDE. WILL CONTINUE TO MONITOR.
--- NOTE | 2019-05-08 12:51 | NUR ---
ABG RESULTS REPORTED TO DR. ESPANA. ORDERED TO EXTUBATE PT IF 02 SAT IS 92% OR GREATER. CURRENT O2 SAT 90%. ORDERED TO PLACE PT BACK ON RATE 10 AND ABG RECHECK IN 2HRS.
--- NOTE | 2019-05-08 15:10 | NUR ---
ABG RESULTS REPORTED TO DR. ESPANA. DEYSIAY TO EXTUBATE PER DR. ESPANA.
--- NOTE | 2019-05-08 15:23 | NUR ---
PT EXTUBATED AT 1515. PLACED ON 6L OF O2 VIA NC. PT ABLE TO PULL 500 ON I.S. RESTRAINTS WERE REMOVED WHEN EXTUBATED. WILL CONTINUE TO MONITOR.
--- NOTE | 2019-05-08 16:30 | NUR ---
HR 110-140S. DR. ESPANA NOTIFIED. DOPAMINE TURNED OFF PER DR. ESPANA. RECHECKED ABG'S. RESULTS REPORTED TO DR. ESPANA. ORDERED PULMONOLOGY CONSULT AND PLACE PT CPAP.
--- NOTE | 2019-05-08 16:40 | NUR ---
RECEIVED REPORT ON PATIENT AND ASSUMED CARE OF PATIENT.
--- NOTE | 2019-05-08 16:50 | NUR ---
DR. DARNELL NOTIFIED OF CONSULT. READ ABG RESULTS, ORDERS BIPAP 12/01, RT NOTIFIED.
--- NOTE | 2019-05-08 18:33 | NUR ---
SPOKE TO DR. ESPANA REFERENCE PATIENT A-FIB RATES 110-120S, ADVISED TO GIVE A 150 MG BOLUS OF AMIODARONE AND INCREASE RATE TO 1 MG/HR FOR 6 HOURS
--- NOTE | 2019-05-08 20:30 | NUR ---
FAMILY AT BEDSIDE. UPDATE GIVEN. PT IS AWAKE AND ALERT. DAUGHTER IS APPLYING LOTION TO PTS LEG.
--- NOTE | 2019-05-08 22:20 | NUR ---
INSULIN GTT OFF. FSBS 146.
[2019-05-09] VITALS (24 sets, daily range): BP systolic 98–128; BP diastolic 50–66
--- NOTE | 2019-05-09 00:38 | NUR ---
CONVERTED BACK TO SINUS RYTHMN. HR 70'S. AMIODARONE CONTINUES TO INFUSE AT 0.5 MG/MIN.
--- NOTE | 2019-05-09 03:30 | NUR ---
AWAKE AND ALERT. C/O MOUTH BEING DRY. BIPAP REMOVED BRIEFLY AND GIVEN SIPS OF H2O. TLERATED WELL. DENIES PAIN AT THIS TIME. NO CHANGES IN ASSESS. HOB ELEVATED
[2019-05-09 06:22] LABS: ALBUMIN 2.2 g/dL (3.4-5.0); ANION GAP 9.8 mmol/L (8-16); BILIRUBIN - TOTAL 0.31 mg/dL (0.2-1.3); CARBON DIOXIDE 28.3 mmol/L (21.0-32.0); MAGNESIUM - SERUM 2.2 mg/dL (1.8-2.4); POTASSIUM - SERUM 4.1 mmol/L (3.5-5.1); PROTEIN - SERUM 5.5 g/dL (6.4-8.2)
[2019-05-09 06:49] LABS: CREATININE - SERUM 0.9 mg/dL (0.6-1.3); PHOSPHOROUS 2.5 mg/dL (2.5-4.9)
--- NOTE | 2019-05-09 07:00 | NUR ---
REPORT RECEVIED FROM THE OFF GOING RN. SEE ASSESSMENT IN THE PTS FLOW SHEET. PT AWAKE AND ON THE BIPAP AT 50%. NSR ON THE MONITOR. VSS. RIGHT IJ C/D/I. SEE IV FLOW SHEET FOR GTTS AND RATES. MIDSTERNAL AND SUSBSTERNAL DRESSING C/D/I. CT X2 AND A LEFT SUBSTERNAL TRAVIS DRAIN NOTED. TPM WIRES CONNECTED TO THE PACEMAKER BUT PACEMAKER TURNED OFF PER DR ESPANA. FC NOTED WITH CLEAR, YELLOW URINE. R RADIAL INCISION WELL APPROXIAMTED AND BUTTON BREAKER. RLE DRESSING KOBAN REMOVED. RED RASH NOTED WILL NOTIFY DR ESPANA. BLISTERS NOTED BEHIND LEFT LEG. PT STATES SHE HAS A HX OF SHINGLES. WILL NOTIFY DR ESPANA. CALL LIGHT IN REACH. WILL CONT POC.
--- NOTE | 2019-05-09 07:10 | NUR ---
BATHED AND BED LINEN CHANGED. DANGELED ON THE SIDE OF THE BED WITH ASSISTANCE FROM 7A STAFF. TOLERATED WELL.
[2019-05-09 07:14] LABS: HEMATOCRIT 31.1 % (36.0-48.0); HEMOGLOBIN 10.1 g/dL (12-16); MCH 30.2 pg (26.0-34.0); MCHC 32.5 g/dL (31.0-37.0); MCV 93.1 fL (80.0-100.0); MEAN PLATELET VOLUME 9.5 fL (7.4-10.4); RBC 3.34 10x6/uL (4.00-5.40); WBC 9.7 10x3/uL (4.8-10.8)
--- NOTE | 2019-05-09 08:56 | NUR ---
SPOKE WITH DR ESPANA. OK FOR LOTION TO RLE LEG WITH RASH.
--- NOTE | 2019-05-09 09:15 | NUR ---
DR ESPANA STATED TO TAKE PT OFF BIPAP, OBTAIN ABG AND TO DC TEO AFTER ABG. OK TO KEEP DANGLEING.
--- NOTE | 2019-05-09 09:32 | NUR ---
PT PUT ON 8L VIA NC. AM MEDS GIVEN. O2 SAT 95%. ENCOURAGED TCDB. PT PULLS ABOUT 750 ON HER IS. CALL LIGHT IN REACH. WILL CONT POC.
--- NOTE | 2019-05-09 10:21 | NUR ---
RT PLACED PT BACK ON BIPAP. WILL CONT POC.
--- NOTE | 2019-05-09 10:51 | NUR ---
TEO DC'D PER ORDERS WELL THE IV NEXT TO THE TEO. BOTH CATHETER TIPS INTACT. PT TOLERATED WELL.
--- NOTE | 2019-05-09 11:00 | NUR ---
REASSESSMENT COMPLETED. SEE FLOW SHEET. VSS. WILL CONT POC.
--- NOTE | 2019-05-09 15:00 | NUR ---
REASSESSMENT COMPLETED. SEE FLOW SHEET. VSS. PT DENIES PAIN AT THIS TIME. CALL LIGHT IN REACH. WILL CONT POC.
--- NOTE | 2019-05-09 17:19 | NUR ---
PT RESTING WITH HER EYES CLOSED. VSS. CALL LIGHT IN REACH. WILL CONT POC.
--- NOTE | 2019-05-09 18:40 | NUR ---
ORAL CARE DONE WITH PERIDEX
--- NOTE | 2019-05-09 19:00 | NUR ---
REPORT RECEIVED AT BEDSIDE, SHIFT ASSESSMENT COMPLETE PER FLOW SHEET, PT AWAKE AND ALERT, ON BIPAP @50% FiO2, ABLE TO TOLLERATE HIGH FLOW NC @ 8L/MIN, DRINK OF ICE WATER GIVEN PER REQUEST, DENIES PAIN OR OTHER NEEDS AT THIS TIME, MIDSTERNALDRSG C/D/I, SUBSTERNAL DRSG C/D/I CTx2 TO 20CM SUCTION, NO AIR LEAK, TRAVIS DRAIN COMPRESSED, TPM WIRES CONNECTED TO PACEMAKER BUT NOT TURNED ON, CRITICORE CABRERA CATH SECURED WITH CLEAR YELLOW VOID, LEFT FOREARM INCISION WITH ENRIQUE INTACT WELL APPROXIMATED, RLE HARVEST SITES C/D/I CONOR, GENERALIZED BLE REDENED AREAS, ALL PULSES PALPABLE, NSR ON CM, VSS, RT IJ CVL SITE C/D/I PATENT, CALL LIGHT IN REACH, BED ALARM ON, WILL CONTINUE TO MONITOR
--- NOTE | 2019-05-09 19:05 | NUR ---
SPOKE WITH DR ESPANA ABOUT GETTING THE PT OOB IN THE AM. HE STATED IF THE PT CAN TOLERATE IT THEN YES. START LOVENOX 40 SUBQ Q 12.
--- NOTE | 2019-05-09 21:00 | NUR ---
FAMILY AT BEDSIDE, MEDS GIVEN PER MAR/ORDERS, VSS, BIPAP OFF AND PT ON HIGH FLOW NC @ 8L/MIN, NO ACUTE S/S OF DISTRESS, DRINK OF ICE WATER GIVEN PER REQUEST, CALL LIGHT IN REACH, WILL CONTINUE TO MONITOR
--- NOTE | 2019-05-09 23:00 | NUR ---
REASSESSMENT COMPLETE PER FLOW SHEET, NO ACUTE CHANGES FROM PRIOR ASSESSMENT, ALL DRSG'S C/D/I, LEFT FOREARM INCISION WITH ENRIQUE INTACT WELL APPROXIMATED C/D/I CONOR, TRAVIS DRAIN COMPRESSED, TPM WIRES SECURED, ALL PULSES PALPABLE, VSS, REPOSITIONED IN BED FOR COMFORT, I/S COMPLETED 750-1000ML x10, TCDB, CALL LIGHT IN REACH, BED ALARM ON, NO FURTHER NEEDS AT THIS TIME, WILL CONTINUE TO MONITOR
[2019-05-10] VITALS (26 sets, daily range): BP systolic 100–148; BP diastolic 47–81
--- NOTE | 2019-05-10 | NUR ---
PT C/O ACHING INCISIONAL DISCOMFORT, PAIN MED GIVEN PER MAR/ORDERS, REPOSITIONED IN BED FOR COMFORT, VSS, WILL CONTINUE TO MONITOR
--- NOTE | 2019-05-10 03:00 | NUR ---
REASSESSMENT COMPLETE PER FLOW SHEET, NO ACUTE CHANGES FROM PRIOR ASSESSMENT, PT RESTING WITH EYES CLOSED, WAKES EASY WITH VERBAL STEMULI, AAOx4, STATES ACHING PAIN WHEN COUGHING BUT RELEIVED BY REST AND SLEEP, REPOSITIONED FOR COMFORT IN BED, HOB ELEVATED, ALL DRSG'S C/D/I, LEFT FOREARM INCISION ENRIQUE INTACT SITE WELL APPROXIMATED C/D/I CONOR, TRAVIS DRAIN COMPRESSED, TPM WIRES CONNECTED WITH TPM OFF, RT IJ CVL PATENT DRSG C/D/I, CALL LIGHT IN REACH, BED ALARM ON, VSS, BIPAP @50%FiO2 REMOVED AND HIGH FLOW NC PLACED ON PT, DRINK OF ICE WATER GIVEN PER REQUEST, I/S COMPLETED 750-1000ML x10, TCDB WITH GOOD EFFORT, BIPAP PLACED BACK ON PT, WILL CONTINUE TO MONITOR
[2019-05-10 06:16] LABS: BASOPHILS 0.2 % (0-2); EOSINOPHILS 1.6 % (0-7); HEMATOCRIT 29.9 % (36.0-48.0); HEMOGLOBIN 9.6 g/dL (12-16); IMMATURE GRANULOCYTES 1.4 % (0-5); LYMPHOCYTES 15.8 % (15-50); MCHC 32.1 g/dL (31.0-37.0); MCV 93.4 fL (80.0-100.0); RDW 12.7 % (11.5-14.5); WBC 8.4 10x3/uL (4.8-10.8)
[2019-05-10 06:18] LABS: PLATELET COUNT 149 10x3/uL (130-400)
--- NOTE | 2019-05-10 06:30 | NUR ---
RT IJ CVL DRSG CHANGED USING STERILE PROCEDURE, PT TOLLERATED WITH NO S/S/ OF DISTRESS, DRSG INITIALED AND DATED
[2019-05-10 06:51] LABS: ALBUMIN 2.1 g/dL (3.4-5.0); ALKALINE PHOSPHATASE 43 U/L (46-116); ALT (SGPT) 12 U/L (10-68); BILIRUBIN - TOTAL 0.34 mg/dL (0.2-1.3); CALC OSMOLALITY 279 mosm/kg (275-300); CALCIUM 8.1 mg/dL (8.5-10.1); CARBON DIOXIDE 30.1 mmol/L (21.0-32.0); CHLORIDE - SERUM 105 mmol/L (98-107); CREATININE - SERUM 0.7 mg/dL (0.6-1.3); GLUCOSE 113 mg/dL (74-106); MAGNESIUM - SERUM 2.1 mg/dL (1.8-2.4); PHOSPHOROUS 2.3 mg/dL (2.5-4.9); POTASSIUM - SERUM 3.8 mmol/L (3.5-5.1); PROTEIN - SERUM 5.4 g/dL (6.4-8.2); SODIUM 139 mmol/L (136-145); UREA NITROGEN 16 mg/dL (7-18); eGFR NON AFRICAN AMERICAN 87 mL/min (90-120)
--- NOTE | 2019-05-10 07:00 | NUR ---
LATE NURSING NOTE ENTRY: 05/10/19 @ 0230 PT AWAKE AND ALERT, PT DENIES PAIN AT THIS TIME CALMLY RESTING IN BED, PT STSATED " I HAVE BEEN FEELING MUCH BETTER BECAUSE I HAVE FINALLY BEEN ABLE TO GET SOME REST AND SLEEP FOR MORE THAN 20 MINUTES AT A TIME." PT VOICED CONCERNS ABOUT ANESTHESIA DURING CABG SURGERY ON 05/07/2019, PT STATED " I REMEMBER DURING THE SURGERY" AND REPORTED HAVING MEMORY OF " WHEN MY CHEST WAS BEING PULLED OPEN" UPON DISCUSSING THE CONCERNS FURTHER PT STATED " AFTER FEELING MY CHEST OPENING I WENT BACK TO SLEEP AND DONT REMEMBER THE REST OF THE OPERATION." PT STATED " I JUST WANTED TO MAKE SURE THE DOCTORS ARE AWARE." PT PAIN CONTROLLED AND DENIES NEED FOR FURTHER PAIN INTERVENTION AT THIS TIME, RN DISCUSSED WITH PT THAT PHYSICIANS WILL BE INFORMED OF CONCERNS, PT CALM AND RELAXED IN BED, DENIES FURTHER NEEDS, WILL CONTINUE TO ASSESS. 0245: CYBER INCIDENT RESPONDER SELWYN BASHIR CALLED AND INFORMED OF PT CONCERNS, SLOT FLOOR PERSON CINDI Sandoval NOTIFIED OF SITUATION. WILL NOTIFY PHYSICIANS IN MORNING 0803: NOTIFIED OF PT CONCERNS, STATED " NOTIFY ANESTHESIA". 0812: CALLED [facility] AND INFORMED DAY SHIFT RN BRENNEN OBRIEN TO NOTIFY ANESTHESIA. 0815: UPDATED DAY SHIFT CYBER INCIDENT RESPONDER NATHAN AND PHARMACY COORDINATOR CHARGE SELWYN BASHIR. 0830: SANDRA GIL COPIER OPERATOR CALLED, INFORMED OF SITUATION, SANDRA GIL STATED SHE WILL DISCUSS WITH PT AND OTHER HOSPITAL PERSONS INVOLVED AND NO FURTHER NEEDS FROM PHARMACY COORDINATOR RN AT THIS TIME.
--- NOTE | 2019-05-10 07:20 | NUR ---
AWAKES EASILY TO VERBAL SITMULI. BIPAP MACHINE ON 50% OXYGEN. NO DISTRESS. DENIES PAIN. PLASMALYTE INFUSING AT 100 ML HOUR, CORDARON AT 0.5MG. IN RIJ CENTRAL LINE. DRESSING DRY AND INTACT. CABRERA CATH PATENT DRAINING CLEAR YELLOW URINE. CHEST TUBES X 2 TO 20 CM SUCTION NO DRAINAGE IN TUBING. NO AIR LEAK. TRAVIS DRAIN SEROUS DRAINAGE SMALL AMOUNT BULB COMPRESSED. ABD SOFT. PULLED UP IN BED. HEAD OF BED ELEVATED 30 DEGREES. CALL LIGHT IN HANDS REACH. MONITOR SR. MID CHEST DRESSING AND SUBSTERNAL DRESSING DRY AND INTACT. LEFT ARM ENRIQUE INTACT SOME CLEAR YELLOW DRAINAGE NOTED. NO DRESSING OPEN TO AIR. NO REDNESS.
--- NOTE | 2019-05-10 08:10 | NUR ---
CLEAR LIQUID TRAY SERVED. DRANK HALF. STATES SHE IS FINE WITH LIQUIDS RIGHT NOW. OFFERED SOLID FOOD.
--- NOTE | 2019-05-10 08:40 | NUR ---
DR MINER AT THE PTS BEDSIDE. DR MINER SPOKE WITH THE PT AND THE PT'S DAUGHTER ABOUT THE PT REMEMBERING THE STENOTOMY. PT UNDERSTANDING AND SAID "I JUST WANTED YOU TO BE AWARE"
--- NOTE | 2019-05-10 09:00 | NUR ---
FAMILY HERE UPDATE GIVEN. DR. CANTU HERE TALKED WITH PATIENT ABOUT HER ANESTHESIA.
--- NOTE | 2019-05-10 09:31 | NUR ---
RESTING COMFORTABLE ON 6 LITERS HIGH FLOW OXYGEN.PULSE OX 92-93%
--- NOTE | 2019-05-10 10:01 | NUR ---
DR. BUCIO NOTIFIED OF PATIENT IN ATRIAL FIB FOR 20 MIN. ORDERS RECEIVED FOR BOLUS OF CORDARONE.
--- NOTE | 2019-05-10 10:40 | TEE ---
PATIENT:ZAIDA BATISTA DELON MEDICAL RECORD: [id number] LOCATION:[place] [address] AGE OF PATIENT: 74 ADMISSION DATE: 05/07/19 SEX: F REFERRING PHYSICIAN: INTERPRETING PHYSICIAN: RENZO HILL MD TRANSESOPHAGEAL ECHOCARDIOGRAM Date: 05/07/19 DONN CHARGE Y INDICATIONS: CABG PREMEDICATIONS: PATIENT'S RESPONSE PROCEDURE DOPPLER MEASUREMENTS: LVIT LA 3.1 PA RA LVOT RVOT Asc. Ao AV Gradient Peak AV Mean AV Area MV Gradient Peak MV Mean MV Area INTERPRETATION: Doppler: 2-D: COLOR FLOW DOPPLER NORMAL SALINE STUDY: MISCELLANOUS: DIAGNOSIS: PLAN: Crew Clerk:1 Dr. Hill Stabilizing Machine Operator: Tor MARTIN COMMENTS: DATE OF SERVICE: 05/07/2019 PROCEDURE: Transesophageal echo evaluation of valvular structures during bypass surgery. FINDINGS: 1. Left ventricular chamber size is within normal limits. Left ventricular systolic function is normal. Overall ejection fraction 55% to 60%. 2. Left atrium, right atrium, and right ventricular chamber sizes are within TRANSESOPHAGEAL ECHOCARDIOGRAM REPORT [id number] VICTOR MANUEL BATISTA normal limits. 3. Valvular structures have normal structure and motion. 4. Doppler interrogation reveals no significant valvular insufficiency or stenosis. 5. No evidence of pericardial effusion or left ventricular thrombus. TRANSINT:[id number] Voice Confirmation ID: [id number] DOCUMENT ID: [id number] at 1040 CC: [id number] DICTATION DATE: 05/08/19 1139 [employer] PLANT MANAGER: 05/09/19 0031 ADM IN [place] [id number] [place] [address]
--- NOTE | 2019-05-10 11:00 | NUR ---
HEART RATE 90-105 STILL ATRIAL FIB. PAIN PILL GIVEN. OFF BIPAP TOLERATING WELL.
--- NOTE | 2019-05-10 11:30 | NUR ---
PULLED UP IN BED FOR LUNCH EATING SLOWLY. DENIES PAIN
--- NOTE | 2019-05-10 12:31 | NUR ---
Nutrition Follow-up: POD 3 CABG. Tolerating clear liquids. Diet now advanced. Diet: Cardiac Wt: 340.6# (330.6# on 05/08) Last BM: 05/06 Labs noted: Glu 113, Ca 8.1, Alb 2.1, PO4 2.3 Meds noted: Senokot, Colace -Continue current diet as tolerated. -Offer nutrition supplements. -Will monitor PO intake and wt. -RD following.
--- NOTE | 2019-05-10 12:44 | NUR ---
FAMILY HERE UPDATE GIVEN.
--- NOTE | 2019-05-10 13:32 | NUR ---
dr. suggs here. tolerating oxmyzer denies any short ness of breath. slowly given patient a hibclens bath. CHEL APPLIED TO LOWER EXTREMITITES. CABRERA CATH CARE DONE
--- NOTE | 2019-05-10 14:02 | NUR ---
COMPLETE HIBCLENS BATH GIVEN WITH LINEN CHANGE. PATIENT TOLERATED GOOD UNTIL LAYING FLAT FOR LINEN CHANGE. PLACED BACK ON BIPAP DUE TO SHORTNESS OF BREATH AND PULSE OX BELOW 90%
--- NOTE | 2019-05-10 14:12 | NUR ---
DR. RIOS HERE. PATIENT RESTING COMFORTABLY ON BIPAP. DENIES PAIN
--- NOTE | 2019-05-10 15:30 | NUR ---
OFF BIPAP. ON 6 LITERS HIGH FLOW OXYGEN. TOLERATING WELL. DO DISTRESS. PO FLUIDS PROVIDED
--- NOTE | 2019-05-10 16:08 | NUR ---
WATCHING TV NO DISTRESS AMBULATED TO BATHROOM INDEPENDENTLY. UNDERSTANDS TO CALL NURSE TO HELP WITH LINES. HAND AIR BRAKE MAN STRONG AND EQUAL
--- NOTE | 2019-05-10 18:00 | NUR ---
DR. ESPANA HERE. ORDERS RECEIVED. OK WITH ATRIAL FIB LONG IT DOES NOT STAY IN THE 120'S.
--- NOTE | 2019-05-10 18:52 | NUR ---
ORAL CARE DONE WITH PERIDEX
--- NOTE | 2019-05-10 19:00 | NUR ---
REPORT RECEIVED AT BEDSIDE, SHIFT ASSESSMENT COMPLETE SEE FLOW SHEET, PT AWAKE AND ALERT, DENIES PAIN OR NEEDS AT THIS TIME, ON HIGH FLOW NC @ 6L/MIN, NO DISTRESS NOTED, SPO2% 94%, RT IJ CVL PATENT SALINE LOCKED WITH SWAB CAPS, CVL DRSG C/D/I, MIDSTERNAL INCISION DRSG C/D/I, SUBSTERNAL CTx2 TO 20cm SUCTION NO AIR LEAK NOTED, TRAVIS DRAIN COMPRESSED WITH SEROUS FLUID IN BULB, SUBSTERNAL DRSG C/D/I, LEFT FOREARM INCISION WITH ENRIQUE INTACT WELL APPROXIMATED, RLE HARVEST SITES C/D/I PICK AND SHOVEL WORKER WELL APPROXIMATED, CRITICORE CABRERA CATH PATENT WITH CLEAR YELLOW VOID, BLE CHEL HOSE AND SCD'S, ATRIAL FIB CONTROLLED ON CM, OTHER VSS, REPOSITIONED PT IN BED FOR COMFORT, EXTREMITIES ELEVATED ON PILLOWS, HOB ELEVATED 30 DEGREES, CALL LIGHT IN REACH, BED ALARM ON, FALL INTERVENTION AND OTHER TEACHING PROVIDED, PT RESTING COMFORTABLY IN BED ABLE TO VERBALIZE NEEDS, NO CONCERNS OR NEEDS AT THIS TIME, LARGE CUP ICE WATER PROVIDED, I/S COMPLETED WITH GOOD EFFORT 750-1000ML x10, TCDB WITH HEART PILLOW TO SUPPORT CHEST, SUBSTERNAL TPM WIRES CONNECTED TO PACEMAKER, PACEMAKER OFF, WILL CONTINUIE TO MONITOR
--- NOTE | 2019-05-10 19:30 | NUR ---
PT HAIR WASHED AND BRUSHED BY RN, PT IN A POSITION OF COMFORT DENIES PAIN, REPLACED ECG ELECTRODES AND B/P CUFF, SKIN CLEANED WITH WARM WIPES, PT SMILING AND HAVING GENERAL CONVERSATION ABOUT COLLECTING DVD'S AND GROWING UP IN [facility], REPOSITIONED PT FOR COMFORT, PILLOWS AND LINEN REPLACED, TCDB AND I/S COMPLETED WITH GOOD EFFORT [id number], PRODUCTIVE COUGH WITH THICK WHITE/MORA MUCOSE SUCTIONED BY PT, ORAL CARE COMPLETED, NO FURTHER NEEDS AT THIS TIME, WILL CONTINUE TO MONITOR
--- NOTE | 2019-05-10 20:00 | NUR ---
DAUGHTER AT BEDSIDE, UPDATE GIVEN, NO QUESTIONS OR NEEDS AT THIS TIME, CALL LIGHT IN REACH, PT IN POSITION OF COMFORT, VSS, DENIES PAIN AT YTHIS TIME, LARGE CUP ICE WATER GIVEN PER REQUEST, WILL CONTINUE TO MONITOR
--- NOTE | 2019-05-10 22:45 | NUR ---
PT CONVERTED TO NSR @75bpm, ALL OTHER VSS, WILL CONTINUE MONITOR
--- NOTE | 2019-05-10 23:00 | NUR ---
REASSESSMENT COMPLETE PER FLOW SHEET, NO ACUTE CHANGES FROM PRIOR ASSESSMENT, PT RESTING COMFORTABLY IN BED, DENIES PAIN OR NEEDS AT THIS TIME, VSS, NSR ON CM, I/S COMPLETED WITH GOOD EFFORT 750-1000ML x10, PT REQUESTED TO BE PLACED BACK ON BIPAP, BIPAP PLACED ON PT, NO ACUTE S/S OF DISTRESS NOTED, CALL LIGHT IN REACH, BED ALARM ON, WILL CONTINUE TO MONITOR
[2019-05-11] VITALS (26 sets, daily range): BP systolic 96–166; BP diastolic 46–61
--- NOTE | 2019-05-11 01:00 | NUR ---
PT SLEEPING WITH NO S/S OF ACUTE DISTRESS, VSS, NSR @ 75bpm ON CM, BIPAP @50% FiO2, CALL LIGHT IN REACH, BED ALARM ON, WILL CONTINUE TO MONITOR
--- NOTE | 2019-05-11 01:15 | NUR ---
PT C/O ACHING INCISIONAL PAIN ACUTE WHEN COUGHING MOVEMENT, RATED 6/10 ON NUMERUIC PAIN SCALE, VSS, PAIN MED GIVEN PER MAR/ORDERS, CUP ICE WATER GIVEN PER REQUEST, WILL CONTINUE TO MONITOR
--- NOTE | 2019-05-11 02:30 | NUR ---
PT REQUESTED DRINK OF WATER, BIPAP REMOVED AND HIGH FLOW NC @6 L/MIN PLACED ON PT, PT COMFORTABLE ON NC AT THIS TIME, VSS, SIPS OF ICE WATER GIVEN PER REQUEST, NO DIFFICULTY SWALLOWING NOTED, I/S COMPLETED 750-1000ML x10 WITH GOOD EFFORT, FLUDDER USED x10, TCDB COMPLETED, PRODUCTIVE THICK WHITE MORA MUCOUS SUCTIONED BY PT, RT AT BEDSIDE FOR RESPIRATORY Tx, RNx2 AT BEDSIDE, REPOSITIONED UP IN BED FOR COMFORT, VSS, NSR ON CM, PT DENIES PAIN OR OTHER NEEDS AT THIS TIME, WILL CONTINUE TO MONITOR
--- NOTE | 2019-05-11 03:00 | NUR ---
REASSESSMENT COMPLETE PER FLOW SHEET, PT RESTING WITH EYES CLOSED COMFORTABLY IN BED, WAKES EASY WITH VERBAL STEMULI AAOx4, PT DENIES PAIN OR NEEDS AT THIS TIME, ALL DRSG'S C/D/I, LEFT FOREARM INCISIN SITE C/D/I CONOR WITH ENRIQUE INTACT WELL APPROXIMATED SUBSTERNAL TRAVIS DRAIN SEROUS FLUID BULB COMPRESSED, CT TO 20cm SUCTION NO AIR LEAK, PT CALM AND RELAXED, CUP ICE WATER GIVEN PER REQUEST, TCDB AND IS COMPLETED WITH GOOD EFFORT 1000ML x10 NOTED ON I/S, FLUDDER COMPLETED x10, ORAL CARE COMPLETED BY PT WITH MINIMAL ASSIST, REPOSITIONED IN BED FOR COMFORT, EXTREMITIES ELEVATED ON PILLOWS, VSS, NSR ON CM, WILL CONTINUE TO MONITOR, CALL LIGHT IN REACH
--- NOTE | 2019-05-11 05:00 | NUR ---
BT OFF BIPAP ON HIGH FLOW NC @ 7L/MIN, NO ACUTE DISTRESS NOTED, PT DENIES SOB, I/S COMPLETED [id number], FLUDDER AND TCDB DONE WITH GOOD EFFORT, DRINK OF WATER GIVEN PER REQUEST, VSS, WILL CONTINUE TO MONITOR
[2019-05-11 06:14] LABS: ANION GAP 8.2 mmol/L (8-16); BASOPHILS 0.1 % (0-2); BILIRUBIN - TOTAL 0.39 mg/dL (0.2-1.3); CALCIUM 7.9 mg/dL (8.5-10.1); CARBON DIOXIDE 29.4 mmol/L (21.0-32.0); CREATININE - SERUM 0.8 mg/dL (0.6-1.3); EOSINOPHILS 2.9 % (0-7); HEMATOCRIT 28.1 % (36.0-48.0); HEMOGLOBIN 9.3 g/dL (12-16); IMMATURE GRANULOCYTES 1.9 % (0-5); LYMPHOCYTES 15.3 % (15-50); MCH 30.3 pg (26.0-34.0); MCHC 33.1 g/dL (31.0-37.0); MCV 91.5 fL (80.0-100.0); MEAN PLATELET VOLUME 9.4 fL (7.4-10.4); MONOCYTES 9.7 % (2-11); NEUTROPHILS 70.1 % (40-80); PHOSPHOROUS 2.5 mg/dL (2.5-4.9); PLATELET COUNT 176 10x3/uL (130-400); POTASSIUM - SERUM 3.6 mmol/L (3.5-5.1); PROTEIN - SERUM 5.4 g/dL (6.4-8.2); RBC 3.07 10x6/uL (4.00-5.40); RDW 12.5 % (11.5-14.5); WBC 7.3 10x3/uL (4.8-10.8)
--- NOTE | 2019-05-11 06:30 | NUR ---
UPDATED PT CONVERTING TO NSR DURING THE NIGHT, ASKED IF WOULD LIKE PT UP IN CHAIR THIS MORNING, REPLIED "YES IF SHE IS OFF BIPAP." ASKED IF WE CAN WAIT FOR PHYSICAL THERAPY TO ASSIST WITH PT MOVWEMENT. DR. ESPANA SAID "YES".
--- NOTE | 2019-05-11 12:21 | NUR ---
ASSISTED PT TO BED WITH PHYSICAL THERAPY-REQUIRED 30% ASSIST-CHEST TUBES TO 40%
--- NOTE | 2019-05-11 19:30 | NUR ---
REC'D PT RESTING IN BED ON O2 @ 7LITERS HIGH FLOW, PT AWAKE, ALER,T AND ORIENTED X 4, RIGHT UPPER ARM PICC LINE DRSG CDI, BOTH PORTS SALINE LOCKED, MIDSTERNAL INCISON DRSG CDI, MEDIASTINAL CT'S X 2 DRSG CDI, DRAINING SEROUS DRAINAGE, LEFT SUBSTERNAL TRAVIS DRAIN, EMPTIED 70CC SEROUS DRAINAGE, BULB COMPRESSED, DRSG CDI, LEFT FOREARM INCISION WITH ENRIQUE, OPEN TO AIR, ENRIQUE CDI, NO DRAINAGE, CRITICORE CABRERA PATENT DRAINING CLEAR YELLOW URINE, BILAT TEDS INTACT, RIGHT LOWER HARVEST SITES, CDI, NO DRAINAGE, PPP, BED IN LOW POSITION, PT DENIES NEEDS, YANKEUR AND CALL LIGHT IN REACH.
--- NOTE | 2019-05-11 21:05 | NUR ---
EVENING MEDS GIVEN, UNABLE TO FIND BACTROBAN, PHARMACY NOTIFIED, PT DENIES NEEDS.
--- NOTE | 2019-05-11 22:45 | NUR ---
PT REQUESTING TO BE REPOSITIONED UP IN BED AND A PAIN PILL WHEN IT IS TIME, PT REPOSITIONED AND PERCOCET PROVIDED, PT RATING PAIN "3" ON 0-10 PAIN SCALE, REASSESSMENT COMPLETED AT THIS TIME, PT REQUESTING BIPAP, BIPAP PLACED ON PT FIO2 50%, PT DENIES FURTHER NEEDS, CALL LIGHT IN REACH.
[2019-05-12] VITALS (24 sets, daily range): BP systolic 110–148; BP diastolic 52–89
--- NOTE | 2019-05-12 00:36 | NUR ---
PT REQUESTING SOMETHING TO DRINK, BIPAP REMOVED BRIEFLY FOR PT TO TAKE A FEW SIPS OF WATER, TOLERATED WELL, VSS, WILL CONTINUE TO MONITOR CLOSELY FOR CHANGES.
--- NOTE | 2019-05-12 01:05 | NUR ---
CM-UCAF @ 110, BP 129/68, WILL MONITOR CLOSELY FOR CHANGES, MD WANTS TO BE NOTIFIED ONLY IF RATE 120 SUSTAINED.
--- NOTE | 2019-05-12 03:05 | NUR ---
REASSESSMENT COMPLETED, PT AWAKE REQUESTING PAIN PILL FOR INCISIONAL DISCOMFORT RATING "6" ON 0-10 PAIN SCALE, PERCOCET 10 PROVIDED, FRESH ICE WATER PROVIDED, PT CONTINUES ON BIPAP, O2 SAT 96%, BP STABLE, WILL CONT TO MONITOR FOR CHANGES.
--- NOTE | 2019-05-12 06:00 | NUR ---
AM LAB DRAWN FROM PICC LINE AND SENT TO LAB, AM MEDS GIVEN ORDERED, BIPAP REMOVED AND PT PLACED ON 7LITER HIGH FLOW, O2 SAT 94%, PT ASKING IF IT IS TIME FOR A PAIN PILL EXPLAINED TO PT IT WAS TO PAIN PILL, VERBALIZED UNDERSTANDING, SR UP X 2, CALL LIGHT IN REACH.
[2019-05-12 06:20] LABS: BASOPHILS 0.2 % (0-2); EOSINOPHILS 5.5 % (0-7); HEMATOCRIT 28.9 % (36.0-48.0); HEMOGLOBIN 9.6 g/dL (12-16); IMMATURE GRANULOCYTES 2.8 % (0-5); LYMPHOCYTES 16.7 % (15-50); MCH 30.5 pg (26.0-34.0); MCHC 33.2 g/dL (31.0-37.0); MCV 91.7 fL (80.0-100.0); MONOCYTES 9.7 % (2-11); NEUTROPHILS 65.1 % (40-80); PLATELET COUNT 171 10x3/uL (130-400); RBC 3.15 10x6/uL (4.00-5.40); RDW 12.7 % (11.5-14.5); WBC 6.2 10x3/uL (4.8-10.8)
[2019-05-12 06:46] LABS: ALBUMIN 1.8 g/dL (3.4-5.0); ANION GAP 9.5 mmol/L (8-16); BILIRUBIN - TOTAL 0.38 mg/dL (0.2-1.3); CALCIUM 7.9 mg/dL (8.5-10.1); CARBON DIOXIDE 28.5 mmol/L (21.0-32.0); CREATININE - SERUM 0.8 mg/dL (0.6-1.3); MAGNESIUM - SERUM 1.7 mg/dL (1.8-2.4); PHOSPHOROUS 2.8 mg/dL (2.5-4.9); PROTEIN - SERUM 5.3 g/dL (6.4-8.2)
--- NOTE | 2019-05-12 13:57 | NUR ---
1140: DR. ESPANA HERE. ASSISSTED BACK TO BED. 1145: MORPHINE 2MG GIVEN IV A PREMED FOR CHEST TUBES TO BE PULLED. 1200: CHEST TUBES PULLED BY DR. ESPANA.
--- NOTE | 2019-05-12 19:30 | NUR ---
REPORT REC'D AND CARE ASSUMED, REC'D PT RESTING IN BED ON CELL PHONE, O2 @ 3LITERS HIGH FLOW, AWAKE, ALERT, AND ORIENTED X 4, RIGHT UPPER ARM PICC SALINE LOCKED, DRSG CDI, MIDSTERNAL DRSG CDI, SUBSTSERNAL DRSG TO PREVIOUS CT SITE AND EXTERNAL P/M WIRES COILED UNDERNEATH CDI, LEFT FOREARM WITH ENRIQUE WELL APPROXIMATED, STOCKINETTE/GAUZE COVERING CDI, CRITICORE CABRERA PATENT DRAINING CLEAR YELLOW URINE, BILAT TEDS, RIGHT LOWER LEG HARVEST SITES, CDI, NO DRAINAGE, LEFT SUBSTERNAL TRAVIS DRAIN TO BULB SUCTION WITH SEROUS DRAINAGE PRESENT, PPP, BED IN LOW POSITION, CALL LIGHT IN REACH.
--- NOTE | 2019-05-12 19:40 | NUR ---
ROUTINE MED GIVEN ORDERED, PT ASKING ABOUT PAIN MEDICATION, INFORMED IT WOULD BE AVAILABLE IN ONE HOUR, PT VERBALIZED UNDERSTANDING.
--- NOTE | 2019-05-12 20:36 | NUR ---
EVENING MEDS GIVEN AND PERCOCET 10 GIVEN FOR INCISIONAL DISCOMFORT PT RATING "4-5" ON 0-10 PAIN SCALE, PT REQUESTING BIPAP MASK PUT ON TO SLEEP, MASK PLACED AT THIS TIME, BIPAP 16/8 AND 50%, O2 SAT 98%, RESP RATE 23, WILL MONITOR CLOSELY FOR CHANGES.
--- NOTE | 2019-05-12 21:30 | NUR ---
FAMILY IN TO SEE PATIENT, PT ABLE TO COMMUNICATE WITH THEM WITH BIPAP ON, DENIES NEEDS.
--- NOTE | 2019-05-12 23:00 | NUR ---
REASSESSMENT COMPLETED, PT RESTING EYES CLOSED ON BIPAP @ 50%, RESP EVEN AND UNLABORED, BP STABLE, DRSGS TO MIDSTERNAL CHEST AND SUBSTERNAL AREA REMAIN CDI, ADJUSTED TEDS FOR PT COMFORT, WILL CONTINUE TO MONITOR CLOSELY FOR CHANGES.
[2019-05-13] VITALS (24 sets, daily range): BP systolic 92–154; BP diastolic 49–87
--- NOTE | 2019-05-13 00:49 | NUR ---
PT REQUESTING PAIN MEDICATION, PERCOCET PROVIDED BY Mark PRATT RN AT THIS TIME, PT PROVIDED PARTIAL BATH TO WIPE BACK AND BOTTOM FOR COMPLAINTS OF SWEATING, REPOSITIONED UP IN BED FOR COMFORT, FACE WASHED AND BIPAP REAPPLIED, NO FURTHER NEEDS VOICED, SR UP X 2, BED IN LOW POSITION, CALL LIGHT IN REACH.
--- NOTE | 2019-05-13 00:55 | NUR ---
UCAF @ 115, BP 128/67, PT DENIES PAIN OR DISCOMFORT, CALL DRU AND LOREN IN REACH.
--- NOTE | 2019-05-13 03:00 | NUR ---
NO CHANGES IN PREVIOUS STATUS, PT RESTING EYES CLOSED ON BIPAP, CM-UCAF @ 113, BP STABLE, WILL CONT TO MONITOR FOR CHANGES.
--- NOTE | 2019-05-13 04:45 | NUR ---
PT AWAKE REQUESTING PAIN PILL AND SIPS OF WATER, PERCOCET PROVIDED AT THIS TIME, PT REQUESTING BIPAP REMOVED AND O2 @ 3LITERS HIGH FLOW APPLIED, O2 SAT 93%, PT DENIES FURTHER NEEDS.
--- NOTE | 2019-05-13 05:10 | NUR ---
PT'S HAIR WASHED AND COMBED FOR COMFORT, PT DENIES NEEDS, SR UP X 2, CALL LIGHT IN REACH.
[2019-05-13 05:55] LABS: BASOPHILS 0.3 % (0-2); EOSINOPHILS 4.1 % (0-7); HEMATOCRIT 29.8 % (36.0-48.0); HEMOGLOBIN 9.9 g/dL (12-16); IMMATURE GRANULOCYTES 4.1 % (0-5); LYMPHOCYTES 17.6 % (15-50); MCH 30.7 pg (26.0-34.0); MCHC 33.2 g/dL (31.0-37.0); MCV 92.3 fL (80.0-100.0); MONOCYTES 8.6 % (2-11); NEUTROPHILS 65.3 % (40-80); RBC 3.23 10x6/uL (4.00-5.40); RDW 12.7 % (11.5-14.5); WBC 6.6 10x3/uL (4.8-10.8)
[2019-05-13 06:08] LABS: PLATELET COUNT 208 10x3/uL (130-400)
[2019-05-13 06:25] LABS: ANION GAP 7.6 mmol/L (8-16); CALCIUM 8.3 mg/dL (8.5-10.1); CARBON DIOXIDE 30.2 mmol/L (21.0-32.0); CREATININE - SERUM 0.8 mg/dL (0.6-1.3); MAGNESIUM - SERUM 1.7 mg/dL (1.8-2.4); POTASSIUM - SERUM 3.8 mmol/L (3.5-5.1)
--- NOTE | 2019-05-13 13:14 | NUR ---
1300: NOTIFIED DR. ESPANA OF HR SUSTAINED > 120 ATRIAL FIB. NEW ORDERS REC'D. 1301: SELF CONVERTED TO SR RATE IN THE 60S. DR. ESPANA NOTIFIED. NEW ORDERS REC'D.
--- NOTE | 2019-05-13 19:00 | NUR ---
REC'D TO CARE. BEDSIDE REPORT AND GEL COAT SPRAYER COMPLETE - SEE FLOWSHEET. PT CURRENTLY GETTING RESP TX. ALERT AND ORIENTED. VSS. REPORTS ADEQUATE PAIN RELIEF. C/L IN REACH. ALARMS ON.
--- NOTE | 2019-05-13 22:36 | NUR ---
PT ON C/L, REQUESTED "PAIN MED". PRN PERCOCET GIVEN - SEE EMAR. WARM BLANKET PROVIDED. BIPAP ON PER MD ORDERS. C/L IN REACH.
[2019-05-14] VITALS (20 sets, daily range): BP systolic 106–159; BP diastolic 54–79
--- NOTE | 2019-05-14 01:22 | NUR ---
BREAK FROM BIPAP. PT RESTING QUIETLY, SNORING. VSS. C/L IN REACH.
--- NOTE | 2019-05-14 03:05 | NUR ---
REASSESSMENT PER FLOWSHEET, NO ACUTE CHANGES. GIVEN PRN PERCOCET PER REQUEST - SEE EMAR. REPOSITIONED UP IN BED. GOOD COUGH NOTED. VSS. C/L IN REACH.
--- NOTE | 2019-05-14 06:00 | NUR ---
DSG CHANGE TO SUBSTERNAL TPM WIRE SITES, PREV CT SITES AND Daisy ROBLES. COMPLETE BATH AND LINEN CHANGE. PT UP TO CHAIR WITH ASSIST X 2, GOOD BALANCE NOTED.
[2019-05-14 06:47] LABS: BASOPHILS 0.4 % (0-2); EOSINOPHILS 4.1 % (0-7); HEMATOCRIT 31.4 % (36.0-48.0); HEMOGLOBIN 10.3 g/dL (12-16); IMMATURE GRANULOCYTES 4.5 % (0-5); LYMPHOCYTES 19.7 % (15-50); MCH 30.4 pg (26.0-34.0); MCHC 32.8 g/dL (31.0-37.0); MCV 92.6 fL (80.0-100.0); MONOCYTES 6.9 % (2-11); NEUTROPHILS 64.4 % (40-80); PLATELET COUNT 226 10x3/uL (130-400); RBC 3.39 10x6/uL (4.00-5.40); RDW 12.8 % (11.5-14.5); WBC 7.3 10x3/uL (4.8-10.8)
[2019-05-14 07:13] LABS: ANION GAP 9.3 mmol/L (8-16); CALCIUM 8.6 mg/dL (8.5-10.1); CARBON DIOXIDE 29.8 mmol/L (21.0-32.0); POTASSIUM - SERUM 4.1 mmol/L (3.5-5.1)
--- NOTE | 2019-05-14 09:44 | NUR ---
AMBULATED WITH PHYSICAL THERAPY.
--- NOTE | 2019-05-14 13:11 | NUR ---
Nutrition Consult/Follow-up: Received consult re: pt asking for education on how to change her diet. POD 7 CABG. Eating well. Ambulating with PT this AM. Diet: Cardiac PO intake: 75-100% Wt: 332.1# (340.6# on 05/10 - diuresing) Last BM: 05/06 Labs reviewed Meds noted: Lasix, KCl, MagOx, Senokot, Colace -Continue current diet as tolerated. -Provided education/written information on heart healthy/low sodium diet; questions answered. -RD following. Thanks for the consult!
--- NOTE | 2019-05-14 13:50 | NUR ---
CABRERA CATHETER DC'D AT THIS TIME PER DR. ESPANA'S ORDERS.
--- NOTE | 2019-05-14 15:30 | NUR ---
AMBULATED WITH PT. ASSISTED OFF BEDSIDE COMMODE. VOIDED ABOUT 200ML OR YELLOW URINE. RE-ASSESSMENT COMPLETED. NO ACUTE CHANGES. WILL CONTINUE TO MONITOR.
--- NOTE | 2019-05-14 17:12 | NUR ---
DINNER TRAY DELIVERED AND SET UP. ICE WATER PROVIDED. DENIES FURTHER NEEDS AT THIS TIME. WILL CONTINUE TO MONITOR.
--- NOTE | 2019-05-14 19:25 | NUR ---
REC'D TO CARE, BEDSIDE REPORT COMPLETE. SEE TWISTER FRAME TENDER. PT UP IN CHAIR, VSS. NO SIGN OF DISTRESS. PT REPORTS "STARTING TO HURT AT TOP OF MY INCISION". WILL ADMIN PRN PAIN MEDS PER MD ORDERS. ALARMS ON AND C/L IN REACH.
--- NOTE | 2019-05-14 19:32 | NUR ---
ADMIN PRN PERCOCET - SEE EMAR.
--- NOTE | 2019-05-14 20:15 | NUR ---
PT UP TO BSC, VOIDED 200ML CLEAR, YELLOW URINE. MOMO-CARE PROVIDED. PT BACK TO BED WITH ASSIST X 1.
--- NOTE | 2019-05-14 23:30 | NUR ---
REASSESSMENT PER FLOWSHEET, NO ACUTE CHANGES. PT REQUESTING "PAIN PILL WHEN ITS TIME". VSS. GOOD EFFORT ON I.S. PULLED 1250.
--- NOTE | 2019-05-14 23:40 | NUR ---
ADMIN PRN PERCOCET PER PT REQUEST. REPOSITIONED FOR COMFORT. ALARMS ON AND C/L IN REACH.
[2019-05-15] VITALS (23 sets, daily range): BP systolic 106–152; BP diastolic 47–103
--- NOTE | 2019-05-15 01:24 | NUR ---
RESTING WITH EYES CLOSED, NO SIGN OF DISTRESS.
--- NOTE | 2019-05-15 03:19 | NUR ---
REASSESSMENT PER FLOWSHEET. NO ACUTE CHANGES. PT RESTING QUIETLY, BIPAP ON PER MD ORDER. PT DENIES NEEDS. C/L IN REACH.
--- NOTE | 2019-05-15 04:30 | NUR ---
PT UP TO BSC. COMPLETE BATH AND LINEN CHANGE DONE. THEN UP IN W/C FOR XRAY.
--- NOTE | 2019-05-15 05:00 | NUR ---
PT C/O UPPER CHEST INCISIONAL PAIN. ADMIN PRN PERCOCET - SEE EMAR.
[2019-05-15 05:47] LABS: BASOPHILS 0.1 % (0-2); EOSINOPHILS 3.6 % (0-7); HEMATOCRIT 31.1 % (36.0-48.0); HEMOGLOBIN 10.2 g/dL (12-16); IMMATURE GRANULOCYTES 4.8 % (0-5); LYMPHOCYTES 14.6 % (15-50); MCH 30.6 pg (26.0-34.0); MCHC 32.8 g/dL (31.0-37.0); MCV 93.4 fL (80.0-100.0); MEAN PLATELET VOLUME 8.8 fL (7.4-10.4); MONOCYTES 6.9 % (2-11); PLATELET COUNT 217 10x3/uL (130-400); RBC 3.33 10x6/uL (4.00-5.40); RDW 12.8 % (11.5-14.5); WBC 8.7 10x3/uL (4.8-10.8)
[2019-05-15 05:59] LABS: ALBUMIN 2.2 g/dL (3.4-5.0); ANION GAP 7.1 mmol/L (8-16); BILIRUBIN - TOTAL 0.39 mg/dL (0.2-1.3); CALCIUM 8.8 mg/dL (8.5-10.1); CARBON DIOXIDE 31.9 mmol/L (21.0-32.0); MAGNESIUM - SERUM 1.8 mg/dL (1.8-2.4); PROTEIN - SERUM 6.2 g/dL (6.4-8.2)
--- NOTE | 2019-05-15 06:10 | NUR ---
BACK FROM XRAY, PT WITH NAUSEA, EMESIS OF 150ML GREEN BILE. ZOFRAN GIVEN. COOL WASH CLOTH PROVIDED. PT REMAINS IN W/C IN ROOM PER REQUEST. "FEELING BETTER". ALARMS ON AND C/L IN REACH.
--- NOTE | 2019-05-15 07:32 | NUR ---
DR. ESPANA NOTIFIED OF PATIENT BEING BACK IN A-FIB.
--- NOTE | 2019-05-15 09:27 | NUR ---
AMBULATED WITH PHYSICAL THERAPY AT THIS TIME.
--- NOTE | 2019-05-15 09:55 | NUR ---
PT BACK IN BED. TPM WIRES DC'D BY DR. ESPANA'S NURSE ELOISA. 4X4 AND TAGEDERM DRESSING USED. TRAVIS DRAIN REMAINS IN PLACE. PT RESTING COMFORTABLY. WILL CONTINUE TO MONITOR.
--- NOTE | 2019-05-15 16:47 | NUR ---
SITTING UP IN CHAIR. MEAL TRAY DELIVERED AND SET UP. DENIES FURTHER NEEDS. WILL CONTINUE TO MONITOR.
--- NOTE | 2019-05-15 19:04 | NUR ---
ORAL CARE DONE WITH PERIDEX
--- NOTE | 2019-05-15 19:30 | NUR ---
REC'D TO CARE, BEDSIDE REPORT DONE. PT UP IN CHAIR. ALERT AND ORIENTED. VSS. SEE ENTRY TECH. WILL ADMIN PRN PAIN MED PER ORDERS. ALARMS ON AND C/L IN REACH.
--- NOTE | 2019-05-15 20:15 | NUR ---
PT UP TO BSC, MOMO-CARE PROVIDED AND PT BACK TO BED.
--- NOTE | 2019-05-15 21:35 | NUR ---
ADMIN PO MEDS PER MD ORDERS. PT REPORTS ADEQUATE PAIN RELIEF. FRESH WATER PROVIDED, DENIES NEEDS. C/L IN REACH.
--- NOTE | 2019-05-15 23:06 | NUR ---
REASSESSMENT PER FLOWSHEET, NO ACUTE CHANGES. VSS. PT DENIES NEEDS.
[2019-05-16] VITALS (11 sets, daily range): BP systolic 98–145; BP diastolic 46–85
--- NOTE | 2019-05-16 02:28 | NUR ---
UP TO BSC, VOIDED 250ML DARK YELLOW URINE. MOMO-CARE PROVIDED, THEN UP IN CHAIR PER REQUEST. ALARMS ON, C/L IN REACH.
--- NOTE | 2019-05-16 03:35 | NUR ---
REASSESSMENT PER FLOWSHEET, NO ACUTE CHANGES. PT REPORTS ADEQUATE PAIN RELIEF, REMAINS UP IN CHAIR. VSS. C/L IN REACH.
--- NOTE | 2019-05-16 05:00 | NUR ---
PT BACK TO BED. STERILE DSG CHANGE TO R PICC PER PROTOCOL. SITE WITHOUT SWELLING OR DRAINAGE, SMALL BRUISING NOTED.
[2019-05-16 06:20] LABS: BASOPHILS 0.2 % (0-2); EOSINOPHILS 3.1 % (0-7); HEMATOCRIT 30.3 % (36.0-48.0); HEMOGLOBIN 10.6 g/dL (12-16); IMMATURE GRANULOCYTES 4.6 % (0-5); LYMPHOCYTES 10.7 % (15-50); MCV 94.4 fL (80.0-100.0); MEAN PLATELET VOLUME 8.7 fL (7.4-10.4); NEUTROPHILS 74.4 % (40-80); PLATELET COUNT 219 10x3/uL (130-400); RBC 3.21 10x6/uL (4.00-5.40); WBC 8.3 10x3/uL (4.8-10.8)
[2019-05-16 06:28] LABS: ANION GAP 6.6 mmol/L (8-16); CALCIUM 8.6 mg/dL (8.5-10.1); CARBON DIOXIDE 32.6 mmol/L (21.0-32.0); POTASSIUM - SERUM 4.2 mmol/L (3.5-5.1)
[2019-05-16] MEDS ORDERED: ASPIRIN EC81 M1 PO (11:07)
[2019-05-16] MEDS ORDERED: ATROVENT 0.02%2.5 ML UPD (11:07)
[2019-05-16] MEDS ORDERED: AMIODARONE HCL200 MG PO (11:07)
[2019-05-16] MEDS ORDERED: PERCOCET 5-3251 TAB PO (11:08)
[2019-05-16] MEDS ORDERED: COLACE100 MG PO (11:08)
[2019-05-16] MEDS ORDERED: LASIX40 MG PO (11:08)
[2019-05-16] MEDS ORDERED: PULMICORT0.5 MG/21 UPD (11:08)
[2019-05-16] MEDS ORDERED: K-DUR20 MEQ PO (11:08)
[2019-05-16] MEDS ORDERED: MAG-OX 400 MG400 MG PO (11:09)
[2019-05-16] MEDS ORDERED: PROTONIX40 MG PO (11:09)
--- NOTE | 2019-05-16 12:14 | NUR ---
Nutrition Follow-up: Eating well. Noted possible d/c. Diet: Cardiac PO intake: 80-90% Wt: 328.4# (332.1# on 05/14; I/Os -1069 mL yesterday) Last BM: 05/16 Labs noted: Glu 120 Meds noted: Lasix, KDur, MagOx, Senokot, Colace -Continue current diet as tolerated. -RD following.
--- NOTE | 2019-05-16 12:24 | NUR ---
PAIN MEDICINE GIVEN AT THIS TIME. PT RATES PAIN 3/10 AT CHEST INCISION.
--- NOTE | 2019-05-16 16:26 | MORECARE ---
CASE MANAGEMENT DISCHARGE SUMMARY PATIENT: ZAIDA BATISTA UNIT: [id number] ADM DATE: 05/07/19 AGE: 74 : 47 SEX: F ROOM/BED: D[facility] AUTHOR: CRISTOBAL,DOC PHYSICIAN: REFERRING PHYSICIAN: TALISHA ESPANA MD DATE OF SERVICE: 05/16/19 Discharge Plan Patient Name: ZAIDA BATISTA Facility: [facility] : 1945 Planned Disposition: Anticipated Discharge Date: Discharge Date: 05/16/2019 Expected LOS: Initial Reviewer: [email or web address] Initial Review Date: 05/07/2019 Generated: 05/16/19 5:25 pm DCP- Discharge Planning Updated by [email or web address]: Rae Kline on 05/07/19 2:[address] Patient Name: ZAIDA BATISTA Admission Status: Elective Accout number: [id number] Admission Date: 05-07-2019 : 1945 Admission Diagnosis: Attending: TALISHA ESPANA Current LOS: 1 Anticipated DC Date: Planned Disposition: Primary Insurance: MEDICARE A & B Discharge Planning Comments: CM met with patient's daughter's to complete initial dc planning assessment. CM educated patient on the CM role and verbal consent given by patient to complete assessment. Patient lives at home alone where she is independent with her care. At discharge patient plans to return home and feels this is a safe discharge. CM discussed availability of home health, rehab services, and medical equipment. Her daughter will be her cement mixer driver home. Patient may need walk test if 02 required at discharge. Patient denied known discharge needs at this time. CM will continue to follow and will assist as needed with dc plans/needs. Fuller Brush Worker: Rae Kline DCPIA - Discharge Planning Initial Assessment Updated by [email or web address]: Rae Kline on 05/07/19 3:46 pm * How many steps to enter\exit or inside your home? * PCP GABBIE AYERS * Pharmacy [facility] * Preadmission Environment Home Alone * ADLs Independent * Equipment None * List name and contact numbers for known caregivers / representatives who currently or will assist patient after discharge: BALTA CARMEN - DAUGHTER - [phone] ELAN WOODALL - [phone] * Verbal permission to speak to the caregivers and representatives has been obtained from the patient. Yes * Community resources currently utilized None * Additional services required to return to the preadmission environment? No * Can the patient safely return to the preadmission environment? Yes * Has this patient been hospitalized within the prior 30 days at any hospital? No Coverage Notice Reviewer: [email or web address] Ancelmo Kline Notice Issued Date-Time: 05/15/2019 15:45 Notice Type: IM Discharge Notice Notice Delivered To: Patient Relationship to Patient: Self Mechanical Engineering Officer Name: Delivery Method: HAND - Hand Delivered Andreea Days: Prior Verbal Notification: Recipient Understood Notice: Yes Recipient Signature: Yes Med Rec Note Co-signed by Attending: Coverage Notice Comment: Reviewer: [email or web address] Kline Notice Issued Date-Time: 05/15/2019 15:45 Notice Type: Patient Choice Letter Notice Delivered To: Patient Relationship to Patient: Self Mechanical Engineering Officer Name: Delivery Method: HAND - Hand Delivered Andreea Days: Prior Verbal Notification: Recipient Understood Notice: Yes Recipient Signature: Yes Med Rec Note Co-signed by Attending: Coverage Notice Comment: [facility] inpatient rehab Last DP export: 05/07/19 2:53 p Patient Name: ZAIDA BATISTA Page [id number] at 1626 All edits/amendments must be made on the electronic document DICTATION DATE: 05/16/191624 SUSTAINABILITY PROJECT COORDINATOR: JENNIFER 05/16/191624 RPT#: [id number] DC DATE:05/16/19 STATUS: DIS IN [facility] [address] [place] [address] END OF REPORT
== END 2019-05-16 14:02 | DRG 235 ==
LOC: D.CVICU 05:06 → D.SDCHOLD 05:06 → D.CVICU 12:56
PROVIDERS: Emergency Medicine; Internal Medicine Pulmonary Disease; ADMIT Thoracic Surgery (Cardiothoracic Vascular Surgery); ATTEND Thoracic Surgery (Cardiothoracic Vascular Surgery)
PROC: 02100AW Bypass Coronary Artery, One Artery from Aorta with Autologous Arterial Tissue, Open Approach (ICD-10-PCS; 2019-05-07)
PROC: 021109W Bypass Coronary Artery, Two Arteries from Aorta with Autologous Venous Tissue, Open Approach (ICD-10-PCS; 2019-05-07)
PROC: 03BC4ZZ Excision of Left Radial Artery, Percutaneous Endoscopic Approach (ICD-10-PCS; 2019-05-07)
PROC: 06BP4ZZ Excision of Right Saphenous Vein, Percutaneous Endoscopic Approach (ICD-10-PCS; 2019-05-07)
PROC: 5A1221Z Performance of Cardiac Output, Continuous (ICD-10-PCS; 2019-05-07)
PROC: B24BZZ4 Ultrasonography of Heart with Aorta, Transesophageal (ICD-10-PCS; 2019-05-07)
PROC: 02100Z9 Bypass Coronary Artery, One Artery from Left Internal Mammary, Open Approach (ICD-10-PCS; principal; 2019-05-07 07:30)
PROC: 05HY33Z Insertion of Infusion Device into Upper Vein, Percutaneous Approach (ICD-10-PCS; 2019-05-11)
DX: I25.10 Atherosclerotic heart disease of native coronary artery without angina pectoris (principal); J96.01 Acute respiratory failure with hypoxia; J44.1 Chronic obstructive pulmonary disease with (acute) exacerbation; Z68.43 Body mass index [BMI] 50.0-59.9, adult; D62 Acute posthemorrhagic anemia; J98.11 Atelectasis; E66.01 Morbid (severe) obesity due to excess calories; D72.829 Elevated white blood cell count, unspecified; M19.90 Unspecified osteoarthritis, unspecified site; E03.9 Hypothyroidism, unspecified; E78.5 Hyperlipidemia, unspecified; I10 Essential (primary) hypertension; I48.91 Unspecified atrial fibrillation; I48.0 Paroxysmal atrial fibrillation; E83.42 Hypomagnesemia; R53.81 Other malaise; Z85.42 Personal history of malignant neoplasm of other parts of uterus

== ENCOUNTER 2019-05-16 13:44 | Inpatient (IN) | payer MEDICARE, OTHER ==
[~2019-05-16] VITALS: Ht 162.6 cm; Wt 150.5 kg
[~2019-05-16 13:44] MED LIST changes: +AMIODARONE HCL200 MG PO; +ASPIRIN EC81 M1 PO; +ATROVENT 0.02%2.5 ML UPD; +B12 SHOT; +COLACE100 MG PO; +K-DUR20 MEQ PO; +LASIX40 MG PO; +MAG-OX 400 MG400 MG PO; +PERCOCET 5-3251 TAB PO; +PROTONIX40 MG PO; +PULMICORT0.5 MG/21 UPD
--- NOTE | 2019-05-16 16:04 | NUR ---
RECIEVED PER WC TO ROOM 1116;ORIENTED TO ROOM AND SURROUNDINGS/CL.SITTING UP IN RECLINER CHAIR.CL IN REACH.
[2019-05-16 16:31] VITALS: BP 121/70; BMI 55.5
[2019-05-16 18:43] VITALS: BP 143/105
--- NOTE | 2019-05-16 19:21 | NUR ---
GREETED PATIENT AND INTRODUCED MYSELF HER NURSE. PATIENT IS CURRENTLY LAYING IN BED WATCHING TV. RESPIRATIONS EVEN. NO S/S OF DISTRESS. DENIES ANY NEEDS AT THIS TIME. CALL LIGHT IN REACH.
--- NOTE | 2019-05-17 02:30 | NUR ---
PT. RESTING QUIETLY WITH EYES CLOSED. O2 AT 2L IN USE VIA NC. RESPIRATIONS EVEN. NO S/S OF DISTRESS. CALL LIGHT IN REACH.
--- NOTE | 2019-05-17 03:10 | NUR ---
ASSISTED PATIENT TO RECLINER TO SIT FOR COMFORT. CALL LIGHT IN REACH.
--- NOTE | 2019-05-17 05:54 | NUR ---
PT. AWAKE AND ASSISTED TO BATHROOM AND BACK TO BED AND REPOSITIONED FOR COMFORT. CALL LIGHT IN REACH.
[2019-05-17 08:00] VITALS: BP 127/65
--- NOTE | 2019-05-17 08:05 | NUR ---
PT EATING BREAFAST, DENIES NEEDS. WCTM.
--- NOTE | 2019-05-17 10:05 | NUR ---
PT AM MEDS ADMINISTERED. PT DENIES NEEDS. WCTM.
[2019-05-17 10:21] LABS: BASOPHILS 0.2 % (0-2); EOSINOPHILS 2.1 % (0-7); HEMATOCRIT 32.5 % (36.0-48.0); HEMOGLOBIN 10.6 g/dL (12-16); LYMPHOCYTES 11.8 % (15-50); MCH 30.4 pg (26.0-34.0); MCHC 32.6 g/dL (31.0-37.0); MCV 93.1 fL (80.0-100.0); MEAN PLATELET VOLUME 9.1 fL (7.4-10.4); MONOCYTES 6.8 % (2-11); NEUTROPHILS 77.1 % (40-80); RBC 3.49 10x6/uL (4.00-5.40); WBC 9.6 10x3/uL (4.8-10.8)
[2019-05-17 10:22] LABS: ANION GAP 13.5 mmol/L (8-16); CALCIUM 8.4 mg/dL (8.5-10.1); CREATININE - SERUM 1.2 mg/dL (0.6-1.3); POTASSIUM - SERUM 4.5 mmol/L (3.5-5.1)
[2019-05-17 10:29] LABS: PLATELET COUNT 278 10x3/uL (130-400)
--- NOTE | 2019-05-17 11:01 | NUR ---
ONLY ONE LUMEN OF PICC LINE WILL FLUSH AT THIS TIME. SPOKE WITH HAYLEY ZELAYAAUTOMATION TEST DEVELOPER ACCESS. PUT IN ORDERS FOR Q8 FLUSHES. WCTM.
[2019-05-17 14:15] VITALS: Ht 162.6 cm; Wt 150.5 kg
--- NOTE | 2019-05-17 17:28 | NUR ---
PT EATING DINNER, DENIES NEEDS. WCTM.
--- NOTE | 2019-05-17 19:35 | NUR ---
PT SITTING UP IN BED. CL IN REACH. DENIES NEEDS AT THIS TIME. BED IN LOW SIDE RAILS X2. RESP EVEN AND UNLABORED. PT IS ON 2L OF O2 VIA NC. A/O X4. LUNGS CLEAR. BOWEL ACTIVE X4. INCISIONS TO CHEST, LEFT ARM AND LEGS ARE INTACT. NO S/S OF INFECTION. WILL CONTINUE TO MONITOR.
[2019-05-17 20:30] VITALS: BP 114/56
--- NOTE | 2019-05-17 22:25 | NUR ---
ASSISTED TO BATHROOM WITH MINIMAL ASSIST. STERNAL PRECAUTIONS IMPLEMTED DURING TRANSFER. PT NOW IN CHAIR NEXT TO BED. CL IN REACH. LEGS ELEVATED. DENIES FURTHER NEEDS AT THIS TIME. WCTM
--- NOTE | 2019-05-18 02:23 | NUR ---
I have reviewed this patient and I concur with the Shift Assessment completed by the Licensed Practical Nurse today this shift.
[2019-05-18 08:00] VITALS: BP 144/58
--- NOTE | 2019-05-18 08:25 | RHP ---
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 HISTORY OF PRESENT ILLNESS: The patient is a 74-year-old female patient followed by Dr. Santacruz, got a history of hypertension, dyslipidemia, coronary artery disease, morbid obesity who underwent left heart catheterization on 05/04/2019 for chest pain, was found to have multivessel disease leading to the need for surgical intervention. She underwent coronary artery bypass grafting times 4 on 05/07/2019 and was placed in the CV ICU postoperatively. We were consulted for medical management. Dr. Padilla saw her during her stay for ventilatory support. On 05/08/2019, she was extubated, developed worsening hypoxic respiratory failure and noted to have atrial fib with rapid ventricular response, was started on amiodarone. Prior to the surgery, the patient was having shortness of breath with activity, but denied any wheezing, paroxysmal nocturnal dyspnea or orthopnea. The patient was seen and evaluated. She had noted cardiomegaly on x-rays and low lung volumes. She had trace bilateral pleural effusions that were managed with IV diuretics. The patient has been titrated on and off the BiPAP during her stay. She is currently on O2 via nasal cannula and maintaining good sats. She has a normal sinus rhythm at this time. Previously, she was living alone, was independent with ADLs and mobility. Currently, she is set up for mod-to-max assist for ADLs and mobility. She is weak. She fatigues easily. She is on 1 liter of O2 at this time. We will hopefully get her off of this during her stay. She has ambulated 150 feet with O2 at 4 liters and to rest stop. She does need to regain her strength before she can return home to her prior level of functioning. COMORBIDITIES: Include acute hypoxic respiratory failure, bibasilar atelectasis, bibasilar pleural effusion, COPD, got a history of obstructive sleep apnea, atrial fibrillation with rapid ventricular response status post coronary artery bypass grafting, cardiomegaly, history of uterine cancer, blood loss anemia, leukocytosis, debility, coronary artery disease, morbid obesity, dyslipidemia, hypothyroidism, osteoarthritis, paroxysmal atrial fib and electrolyte abnormalities. PAST MEDICAL HISTORY: Significant for tremors. She got a history of thyroid problems, coronary artery disease, uterine cancer, arthritis, shingles. PAST SURGICAL HISTORY: Includes hysterectomy, tubal ligation, tonsillectomy and adenoidectomy, coronary artery bypass grafting times 4. ALLERGIES: EGGS AND SHELLFISH. CURRENT MEDICATIONS: Include Pravachol 40 mg daily, Lasix 40 mg daily, aspirin 81 mg daily, Synthroid 125 mcg daily, potassium 20 mEq b.i.d., Mag-Ox 400 mg b.i.d., Colace 100 mg b.i.d., amiodarone 400 mg b.i.d., Atrovent updrafts p.r.n., budesonide 0.5 mg b.i.d., Protonix 40 mg b.i.d. and Percocet 5/325 one tab every 4 to 6 hours p.r.n. pain. HABITS: Does have a distal history of tobacco use. HISTORY AND PHYSICAL [id number] ZAIDA BATISTA FAMILY HISTORY: Noncontributory. SOCIAL HISTORY: The patient hopes to return back home and get back to her prior level of functioning. REVIEW OF SYSTEMS: GENERAL: Does complain of weakness and fatigue. HEENT: Denies cold, cough, or congestion. CARDIOVASCULAR: Denies any chest pain. PHYSICAL EXAMINATION: VITAL SIGNS: Stable, afebrile. Generally, a morbidly obese female in no acute distress, alert upon exam. HEENT: Normocephalic and atraumatic. Mucosa moist. NECK: Supple. No lymphadenopathy. LUNGS: Clear in upper cast[place] with decreased breath sounds in her bases secondary to body habitus. CARDIOVASCULAR: Regular rate and rhythm. ABDOMEN: Soft, benign and nondistended. Positive bowel sounds times 4. EXTREMITIES: No clubbing, cyanosis or edema. NEUROLOGIC: She does have noted proximal muscle weakness. LABORATORY DATA: Admit labs are pending this morning. ASSESSMENT: This is a 74-year-old female patient admitted to rehab with a working diagnosis and myopathy secondary to coronary artery disease and status post coronary artery bypass grafting times 4. The patient has potential to make improvement. We instituted the following multidisciplinary therapies include, but not limited to physical, occupational, respiratory, speech, nutritional services, prosthetics and orthotics. Given her complex medical condition and risks for more complications, rehabilitation services cannot be provided at a low level of care such as skilled facility. PLAN: 1. Admit to [facility] for intensive inpatient therapy to include the following disciplines; A. Physical therapy to improve gait, all transfer skills and bed mobility to a modified independent level. B. Occupational therapy to a modified independent level. C. Case management to assist with discharge planning and placement options. D. Nutrition to assist with nutritional needs. E. Rehabilitation nursing to assist in monitoring the patient's underlying medical conditions and to assist with any type of bowel or bladder management. 2. The patient's current medication and medical care will be continued. 3. We will go ahead and check a TSH and vitamin D level in the a.m. 4. We will continue with current medications at this time and see again in the a.m. TRANSINT:[id number] Voice Confirmation ID: [id number] DOCUMENT ID: [id number] ALEXANDR notes whether there has been none or any medical/functional change since admission: - No change since prescreen. HISTORY AND PHYSICAL [id number] ZAIDA BATISTA attests patient continues to be appropriate for IRF: - Continues to be appropriate. YULI RIOS MD at 0825 CC: [id number] DICTATION DATE: 05/17/19 0850 PIPELINE SYSTEMS OPERATOR: 05/17/19 0928 ADM IN [facility] [address] [place] [address]
--- NOTE | 2019-05-18 09:43 | NUR ---
PATIENT ADMITTED TO REHAB FROM ACUTE FLOOR. PATIENT PCP IS DR. AYERS. SHE HAS NO DME AT HOME DISCHARGE PLANS ARE FOR HER TO RETURN HOME WITH FAMILY. WILL CONTINUE TO FOLLOW WITH PATIENT.
--- NOTE | 2019-05-18 10:41 | NUR ---
CALLED SEAN WITH DR ESPANA OFFICE AND TOLD HER PT WAS INSISTING TO DC TODAY. SEAN SAID THEY WANTED HER TO STAY IN REHAB AND WILL COME SEE HER THIS AFTERNOON AFTER THEY GET OUT OF SURGERY. PT INFORMED.
--- NOTE | 2019-05-18 13:25 | NUR ---
PATIENT DISCHARGING HOME TODAY, [facility] WILL PROVIDE THERAPY AT HOME. NO DME NEEDED AT THIS TIME.NURSE VISIT AT DR. ESPANA OFFICE IS 05/24/19 @ 9:00, DR. ESPANA 06/06/19 @ 11:45, DR. AYERS 05/25/19 @ 11:00, DR. SINGER 06/19/19 @ 1:30.PATIENT CHOICE FORM WITH COMPARE DATA REVIEWED WITH PATIENT AND PATIENT VOICED UNDERSTANDING. DISCHARGE INSTRUCTIONS FAXED TO PCP, HOME HEALTH AND REVIEWED WITH PATIENT.
--- NOTE | 2019-05-18 15:00 | NUR ---
DC HOME WITH FAMILY. REVIEWED ALL DC PLANS, F/U APPTS, SKIN BREAKDOWN MONITORING. DENIES QUESTIONS.LEFT IN WC
== END 2019-05-18 15:00 | disposition home health service (06) | DRG 91 ==
LOC: D.REHAB 13:44
PROVIDERS: ADMIT Emergency Medicine; ATTEND Emergency Medicine
DX: G72.9 Myopathy, unspecified (principal); J96.01 Acute respiratory failure with hypoxia; J98.11 Atelectasis; J90 Pleural effusion, not elsewhere classified; D62 Acute posthemorrhagic anemia; J44.1 Chronic obstructive pulmonary disease with (acute) exacerbation; Z68.43 Body mass index [BMI] 50.0-59.9, adult; I25.10 Atherosclerotic heart disease of native coronary artery without angina pectoris; G47.33 Obstructive sleep apnea (adult) (pediatric); I48.91 Unspecified atrial fibrillation; I51.7 Cardiomegaly; Z85.42 Personal history of malignant neoplasm of other parts of uterus; R53.81 Other malaise; E03.9 Hypothyroidism, unspecified; E66.01 Morbid (severe) obesity due to excess calories; E78.5 Hyperlipidemia, unspecified; M19.90 Unspecified osteoarthritis, unspecified site; I48.0 Paroxysmal atrial fibrillation; E87.8 Other disorders of electrolyte and fluid balance, not elsewhere classified; D72.829 Elevated white blood cell count, unspecified; Z95.1 Presence of aortocoronary bypass graft; E83.42 Hypomagnesemia

== ENCOUNTER → 2019-06-12 10:54 | Outpatient (CLI) | payer MEDICARE, OTHER ==
[2019-05-17 14:15] VITALS: BMI 56.8
[2019-06-12 11:30] LABS: BASOPHILS 0.2 % (0-2); EOSINOPHILS 0 % (0-7); HEMATOCRIT 37.5 % (36.0-48.0); HEMOGLOBIN 12.2 g/dL (12-16); IMMATURE GRANULOCYTES 0.2 % (0-5); LYMPHOCYTES 8.2 % (15-50); MCH 29.4 pg (26.0-34.0); MCHC 32.5 g/dL (31.0-37.0); MCV 90.4 fL (80.0-100.0); MEAN PLATELET VOLUME 8.9 fL (7.4-10.4); MONOCYTES 0.7 % (2-11); NEUTROPHILS 90.7 % (40-80); PLATELET COUNT 296 10x3/uL (130-400); RBC 4.15 10x6/uL (4.00-5.40); RDW 12.8 % (11.5-14.5); WBC 5.5 10x3/uL (4.8-10.8)
[2019-06-12 11:42] LABS: APTT 30.9 SECONDS (22.8-39.4); INR 1.41 (0.85-1.17); PROTIME 17.1 SECONDS (11.6-15.0)
[2019-06-12 11:53] LABS: ALBUMIN 3.6 g/dL (3.4-5.0); ANION GAP 12.8 mmol/L (8-16); BILIRUBIN - TOTAL 0.39 mg/dL (0.2-1.3); CALCIUM 9.6 mg/dL (8.5-10.1); CARBON DIOXIDE 28.5 mmol/L (21.0-32.0); CREATININE - SERUM 1.2 mg/dL (0.6-1.3); POTASSIUM - SERUM 4.3 mmol/L (3.5-5.1); PROTEIN - SERUM 7.8 g/dL (6.4-8.2)
== END | disposition home or self-care (01) ==
LOC: D.CT 06-11 09:00
PROVIDERS: Orthopaedic Surgery; ATTEND Thoracic Surgery (Cardiothoracic Vascular Surgery)
DX: I26.99 Other pulmonary embolism without acute cor pulmonale (principal)

== ENCOUNTER → 2019-12-03 13:09 | Outpatient (CLI) | payer MEDICARE, OTHER ==
[2019-05-17 14:15] VITALS: BMI 56.8
== END | disposition home or self-care (01) ==
LOC: D.LAB 12:29
PROVIDERS: ATTEND Internal Medicine Pulmonary Disease
DX: Z11.59 Encounter for screening for other viral diseases (principal)

== ENCOUNTER → 2019-12-05 08:18 | Outpatient (CLI) | payer MEDICARE, OTHER ==
[2019-05-17 14:15] VITALS: BMI 56.8
[2019-12-05 09:42] LABS: CREATININE - SERUM 1.3 mg/dL (0.6-1.3)
== END | disposition home or self-care (01) ==
LOC: D.RT 08:00 → D.CT 09:00
PROVIDERS: ATTEND Internal Medicine Pulmonary Disease
DX: I26.99 Other pulmonary embolism without acute cor pulmonale (principal); J44.9 Chronic obstructive pulmonary disease, unspecified